=== PATIENT | female | born 1940 | race Caucasian/White ===

== ENCOUNTER 2016-05-19 13:23 | Emergency (ER) | payer MEDICARE ==
[2016-05-19] MEDS ORDERED: ONDANSETRON 4MG/2ML VIAL (J2405) As Ordered ONE (16:37)
[2016-05-19] MEDS ORDERED: KETOROLAC 30 MG/ML VIAL (J1885) As Ordered ONE (16:37)
[2016-05-19 16:55] LABS: BASO % 0.2 % (0.0-1.0); EOS # 0.1 K/mm3 (0.0-0.50); EOS % 1.7 % (0.0-3.0); LARGE UNSTAINED CELL # 0.2 K/mm3 (0.0-0.4); LARGE UNSTAINED CELL % 3.3 % (0.0-4.0); LYMPH # 1.8 K/mm3 (1.5-4.5); LYMPH % 31.4 % (24.0-44.0); MEAN CORPUSCULAR HEMOGLOBIN 31.5 pg (27.0-33.0); MEAN CORPUSCULAR HGB CONC 33.3 g/dl (32.0-36.5); MEAN CORPUSCULAR VOLUME 94.6 fl (80.0-96.0); MONO # 0.4 K/mm3 (0.0-0.8); MONO % 6.1 % (0.0-5.0); NEUTROPHILS # 3.3 K/mm3 (1.8-7.7); NEUTROPHILS % 57.3 % (36.0-66.0); PLATELET COUNT, AUTOMATED 273 k/mm3 (150-450); RED CELL DISTRIBUTION WIDTH 12.8 % (11.5-14.5); WHITE BLOOD COUNT 5.7 K/mm3 (4.0-10.0)
[2016-05-19 17:12] LABS: ALBUMIN 4.2 GM/DL (3.2-5.2); ALBUMIN/GLOBULIN RATIO 1.31 (1.00-1.93); ALKALINE PHOSPHATASE 88 U/L (45-117); ALT/SGPT 18 U/L (12-78); AMYLASE 89 U/L (25-115); ANION GAP 11 MEQ/L (8-16); AST/SGOT 14 U/L (15-37); BILIRUBIN,DIRECT 0.1 MG/DL (0.0-0.2); BILIRUBIN,TOTAL 0.5 MG/DL (0.2-1.0); BLOOD UREA NITROGEN 12 MG/DL (7-18); CALCIUM LEVEL 9.2 MG/DL (8.8-10.2); CARBON DIOXIDE LEVEL 25 MEQ/L (21-32); CHLORIDE LEVEL 107 MEQ/L (98-107); GLOMERULAR FILTRATION RATE > 60.0 (>39); GLUCOSE, FASTING 85 MG/DL (83-110); POTASSIUM SERUM 3.8 MEQ/L (3.5-5.1); SODIUM LEVEL 143 MEQ/L (136-145); TOTAL PROTEIN 7.4 GM/DL (6.4-8.2)
--- NOTE | 2016-05-19 17:13 | REP ---
KUB, two views: History: Right upper quadrant pain. Air is present in small and large intestine. There are no air fluid levels or dilated loops of intestine. There is no pneumoperitoneum. IMPRESSION: Nonspecific bowel gas pattern. Signed by David Rae MD 05/20/2016 08:19 A
[2016-05-19] MEDS ORDERED: METOCLOPRAMIDE INJ 10MG/2ML VIAL (J2765) As Ordered ONE (17:45)
--- NOTE | 2016-05-19 18:17 | REP ---
Right upper quadrant sonography: History: Right upper quadrant pain. Comparison sonography is from April 06, 2009. Comparison CT study is from June 19, 2014. Findings: Scanning through the right upper quadrant of the abdomen demonstrates tenderness while scanning over the gallbladder. Gallbladder is not dilated. Its wall is not thickened. No stone or polyp is appreciated. Common bile duct is normal measuring 0.6 cm in greatest diameter. No focal hepatic lesion is seen. Scanning over the pancreas shows no evidence of mass or cyst. The main pancreatic duct is somewhat dilated, however, measuring 4.7 or 5 mm. This appears to be a change from the comparison CT study from 2014. No pancreatic mass lesion is seen. There is no evidence of ascites. No right renal abnormality is noted. The right kidney measures 10.1 x 3.8 x 4.5 cm. Impression: 1. Tenderness to scanning over the gallbladder. No evidence of stone or polyp. 2. Main pancreatic duct is mildly dilated to 0.5 cm in diameter. No mass or cyst is seen. Consider further pancreatic imaging. Signed by Kevin Cagle MD 05/19/2016 06:38 P
[2016-05-19] MEDS ORDERED: ISOVUE-370 76% 100ML VIAL (Q9967) As Ordered ONE (18:56)
--- NOTE | 2016-05-19 19:49 | REP ---
CT abdomen and pelvis with IV, but without oral contrast: History: Abdominal pain. Pancreatic duct dilation. CT contrast dose: 100 ml of Isovue 370 is administered intravenously. Comparison CT study June 19, 2014. CT findings: Preliminary digital concert pianist radiograph is unremarkable. The lung bases show no significant abnormality. The liver shows mild diffuse fatty infiltration, but is otherwise homogeneous. No focal liver mass lesion is seen. The spleen is normal in size and homogeneous in texture. No adrenal lesion is seen on either side. The gallbladder shows no abnormality. Pancreas shows no evidence of mass or cyst. By CT, main pancreatic duct measures 3 mm in diameter. It is felt to be upper normal. It is not significantly changed by CT scan from June 19, 2014. No retroperitoneal mass or adenopathy is seen. Normal caliber aorta is seen. The kidneys enhance symmetrically and are morphologically intact. There is a subcentimeter cortical cyst posteriorly in the left kidney. Extrarenal pelvis configuration is seen bilaterally. There is left colonic diverticulosis without CT evidence of diverticulitis. Small and large intestinal bowel loops are unremarkable. The patient is status post hysterectomy. No bony destructive lesion is seen. No abdominal wall defect is observed. Impression: 1. Mild diffuse fatty infiltration of the liver. 2. No significant pancreatic abnormality. Borderline pancreatic duct unchanged from the 2015 study. 3. Left colonic diverticulosis without CT evidence of diverticulitis. 4. Status post hysterectomy. Signed by Kevin Cagle MD 05/19/2016 08:00 P
[2016-05-19] MEDS ORDERED: NITROFURANTOIN (MACROBID) 100 MG CAP As Ordered ONE (20:56)
--- NOTE | 2016-05-19 21:20 | EDDOCDS ---
Nurse's Notes [facility] Name: Yael Oh Age: 75 yrs Sex: Female : 1940 Arrival Date: 05/19/2016 Time: 13:23 Bed TR3 Private MD: Brittanie Hdz Diagnosis: Upper abdominal pain, unspecified;Urinary tract infection, site not specified Presentation: 05/19 13:38 Presenting complaint: Patient states: pain in right side for a long time (hurt 20 years hs1 ago) Patient states flare up today and unbearable. Patient states radiates from back into stomach. Patient reports bloating. Adult Sepsis Screening: The patient does not have new or worsening altered mentation. Patient's respiratory rate is less than 22. Systolic blood pressure is greater than 100. Patient has a qSOFA score of 0- Negative Sepsis Screen. Suicide/Homicide risk assessment- the patient denies having any suicidal and/or homicidal ideations and does not present with any other emotional, behavioral or mental health complaints. 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 Transition of care: patient was not received from another setting of care. 13:38 Acuity: DAVE Level 3 hs1 13:38 Method Of Arrival: Walkin/Carried/Asstd hs1 13:45 Presenting complaint: patient tells this nurse at this time she was sent by [place] [id number] [facility] facility who wanted her to go by ambulance around 1130. Patient refused to come by ambulance. Triage Assessment: 13:44 General: Appears uncomfortable, Behavior is appropriate for age, cooperative. Pain: hs1 Location: back and abdomen Pain currently is 9 out of 10 on a pain scale. Neurological: No deficits noted. GI: Abdomen is non- distended Denies nausea, vomiting. Derm: Skin is pink, warm & dry. normal. Historical: - Allergies: QUINIDINE/QUININE & DERIVATIVES; Latex; TETRACYCLINES; Biaxin; Morphinestates very sensitive to it (resp depression noted last time administered); - Home Meds: 1. gabapentin 600 mg Oral tab 1 tab 3 times per day 2. amlodipine-valsartan 5-160 mg oral tab 1 tab once daily 3. Excedrin Migraine 250-250-65 mg Oral tab (Last dose: 05/18/2016) 4. rabeprazole 20 mg oral TbEC 1 tab once daily 5. pentazocine-naloxone 50-0.5 mg oral tab (Last dose: 05/19/2016 11:00) - PMHx: Fibromyalgia; Arthritis; Diverticulosis; Diverticulitis; Osteoporosis; symptahetic dystrophy; - PSHx: Hysterectomy; Tonsillectomy; bladder repair; - Social history: Smoking status: Patient states former smoker of tobacco. No barriers to communication noted, The patient speaks fluent Slovenian, Speaks appropriately for age. - Family history: Not pertinent. - : The pt / caregiver states he / she is not on anticoagulants. Home medication list is obtained from the patient. - Exposure Risk Screening:: None identified. Screenin:46 Screening information is obtained from the patient. Fall risk: No risks identified. hs1 Assistance ADL's: requires no assistance with activities of daily living. Abuse/DV Screen: The patient / caregiver reports he/she is: not in a situation that causes fear, pain or injury. Nutritional screening: No deficits noted. Advance Directives: There is no active DNR order. home support is adequate. Assessment: 16:13 General: Appears uncomfortable, well nourished, well groomed, Behavior is anxious, ttb appropriate for age, cooperative, pleasant. Pain: Location: right upper/mid abd/flank. Neurological: Level of Consciousness is awake, alert. Respiratory: No deficits noted. Airway is patent Respiratory effort is even, unlabored. GI: Abdomen is "bloated" per pt firm Reports bloating, lower abdominal pain, upper abdominal pain. GI: Reports. : Denies burning with urination. Derm: Skin is normal. Injury Description: No known injury. 16:41 Adult Sepsis Screening: The patient does not have new or worsening altered mentation. dsf Patient's respiratory rate is less than 22. Systolic blood pressure is greater than 100. Patient has a qSOFA score of 0- Negative Sepsis Screen. General: Appears uncomfortable, Behavior is cooperative, fussy. Pain: Location: right upper quadrant Pain currently is 8 out of 10 on a pain scale. Pain radiates to epigastric area and right back Quality of pain is described as sharp, Pain began for months. Neurological: Level of Consciousness is awake, alert, Oriented to person, place, time. Cardiovascular: Capillary refill < 3 seconds. Respiratory: Airway is patent Respiratory effort is even, unlabored, Respiratory pattern is regular, symmetrical. Derm: Skin is pink, warm & dry. 17:50 Adult Sepsis Screening: The patient does not have new or worsening altered mentation. dsf Patient's respiratory rate is less than 22. Systolic blood pressure is greater than 100. Patient has a qSOFA score of 0- Negative Sepsis Screen. General: Appears in no apparent distress, Behavior is appropriate for age, cooperative. Neurological: Level of Consciousness is awake, alert. Cardiovascular: Capillary refill < 3 seconds. Respiratory: Airway is patent Respiratory effort is even, unlabored, Respiratory pattern is regular, symmetrical. Derm: Skin is pink, warm & dry. 19:03 General: Appears in no apparent distress, Behavior is appropriate for age, cooperative. dsf Pain: Location: right upper quadrant Pain currently is 3 out of 10 on a pain scale. Neurological: Level of Consciousness is awake, alert. Cardiovascular: Capillary refill < 3 seconds Heart tones S1 S2 present. Respiratory: Airway is patent Respiratory effort is even, unlabored, Respiratory pattern is regular, symmetrical, Breath sounds are clear bilaterally. GI: Abdomen is non- distended Bowel sounds present X 4 quads. Abd is soft and non tender X 4 quads. Denies nausea. Derm: Skin is pink, warm & dry. 20:19 General: Appears in no apparent distress, comfortable, Behavior is appropriate for age, jmb cooperative, Patient laying on stretcher, appears asleep, easy to arouse. NO voiced complaints at this time. . Neurological: Level of Consciousness is awake, alert, obeys commands, Oriented to person, place, time, Repertoire Manager are equal bilaterally Speech is normal, Facial symmetry appears normal, Facial symmetry: tongue is midline. Respiratory: Airway is patent Respiratory effort is even, unlabored, Respiratory pattern is regular, symmetrical. 21:00 General: Patient instructed on discharge instructions. Patient asked if there were any jmb questions regarding discharge, patient stated no. IV discontinued per hospital policy. Patient signed discharge instructions. Patient discharged in stable condition. . Vital Signs: 13:26 BP 175 / 97; Pulse 116; Resp 18 S; Temp 98.5(O); Pulse Ox 96% on R/A; Weight 67.13 kg gr2 (R); Height 5 ft. 6 in. (167.64 cm) (R); Pain 9/10; 19:10 BP 156 / 75; Pulse 74; Resp 18; Temp 97.7; Pulse Ox 95% ; Pain 3/10; ajs 21:04 BP 142 / 75; Pulse 72; Resp 18; Temp 99.2; Pulse Ox 96% ; Pain 3/10; ajs 13:26 Body Mass Index 23.89 (67.13 kg, 167.64 cm) gr2 Vitals: 13:26 Log In Time: May 19, 2016 at 13:26. gr2 ED Course: 13:24 Patient visited by Cristina Fairchild. gr2 13:24 Patient moved to Waiting gr2 13:25 Brittanie Hdz RPA-C is Private Physician. gr2 13:27 Patient visited by Cristina Fairchild. gr2 13:27 Patient moved to Pre RCE gr2 13:40 Triage Initiated hs1 15:34 Patient moved to Triage 2 ct3 16:13 Cosmo Foy PA-C is PHCP. ar2 16:13 Charanjit Taylor MD is Attending Physician. ar2 16:13 Patient visited by Cosmo Foy PA-C. ar2 16:15 Patient visited by Saira Barron, BRANDI. ttb 16:25 Cassie Fallon, BRANDI is Primary Nurse. ttb 16:25 Angela Mooney,BRANDI is Primary Nurse. ttb 16:25 Patient moved to I2 / M2 ttb 16:40 Amylase Sent. dsf 16:40 Basic Metabolic Profile Sent. dsf 16:40 CBC with Diff Sent. dsf 16:40 Lipase Sent. dsf 16:40 Liver Profile Sent. dsf 16:40 Inserted saline lock: 20 gauge in right antecubital area The patient tolerated the dsf procedure well. 16:41 Patient visited by Viridiana Bruno,BRANDI. dsf 17:23 KUB Returned. EDMS 17:25 Patient moved to Ultrasound hgl 18:20 Gallbladder US Returned. EDMS 18:23 PHCP role handed off by Cosmo Foy PA-C ck7 18:23 Phani Solorio RPA-C is PHCP. ck7 18:36 [facility] Payment Agreement was scanned into [employer] and attached to record. gjb 18:39 Patient moved to I2 / M2 hgl 18:41 Patient visited by Phani Solorio RPA-C. ck7 19:04 Patient visited by Viridiana Bruno RN. dsf 19:11 Patient visited by Awilda Yoon. ajs 19:17 Gallbladder US Returned. EDMS 19:51 Patient visited by Phani Solorio RPA-C. ck7 20:16 CT ABD & PELVIS: IV Contrast Only Returned. EDMS 20:20 Patient visited by Ty Coates RN. jmb 20:50 Patient visited by Phani Solorio RPA-C. ck7 20:52 Brittanie Hdz RPA-C is Referral Physician. ck7 21:00 The patient / caregiver is instructed regarding the plan of care and ED course. jmb 21:00 Discontinued lock intact, bleeding controlled, pressure dressing applied, No jmb redness/swelling at site. No procedures done that require assistance. 21:04 Patient visited by Awilda Yoon. ajs 21:11 Patient moved to 3 ajs Administered Medications: 16:46 Drug: Ondansetron 4 mg Route: IVP; Site: right antecubital; ja5 16:46 Drug: ketorolac 30 mg [ketorolac 30 mg/mL (1 mL) injection solution (1 mL)] Route: IVP; ja5 Site: right antecubital; 17:59 Drug: Metoclopramide 10 mg [metoclopramide 5 mg/mL injection solution] Route: IV; Rate: ja5 40 mg/hr; Infused Over: 15 mins; Site: right antecubital; 18:22 Follow up: IV Status: Completed infusion ja5 18:04 Drug: NS 0.9% 1000 ml [sodium chloride 0.9 % intravenous solution] Route: IV; Rate: ja5 bolus; Site: right antecubital; 21:00 Drug: Nitrofurantoin 100 mg [nitrofurantoin macrocrystal 50 mg capsule (2 caps)] Route: jmb PO; Order Results: Lab Order: UA; SPEC'M 05/19/16 16:18 Test: APPEARANCE, URINE; Value: HAZY; Range: CLEAR; Status: F Test: COLOR, URINE; Value: STRAW; Range: YELLOW; Status: F Test: PH,URINE; Value: 6.0; Range: 5.0-9.0; Units: UNITS; Status: F Test: SPECIFIC GRAVITY URINE AUTO; Value: 1.005; Range: 1.002-1.035; Status: F Test: PROTEIN, URINE AUTO; Value: NEGATIVE; Range: NEGATIVE; Units: mg/dL; Status: F Test: GLUCOSE, URINE (UA) AUTO; Value: NEGATIVE; Range: NEGATIVE; Units: mg/dL; Status: F Test: KETONE, URINE AUTO; Value: TRACE; Range: NEGATIVE; Abnormal: Above high normal; Units: mg/dL; Status: F Test: UROBILINOGEN, URINE AUTO; Value: 0.2; Range: 0.0-2.0; Units: mg/dL; Status: F Test: BILIRUBIN, URINE AUTO; Value: NEGATIVE; Range: NEGATIVE; Status: F Test: NITRITE, URINE AUTO; Value: NEGATIVE; Range: NEGATIVE; Status: F Test: LEUKOCYTE ESTERASE, URINE AUTO; Value: 3+; Range: NEGATIVE; Abnormal: Above high normal; Status: F Test: BLOOD, URINE BLOOD; Value: NEGATIVE; Range: NEGATIVE; Status: F Test: WBC, URINE AUTO; Value: 144; Range: 0-3; Abnormal: Above high normal; Units: /HPF; Status: F Test: RBC, URINE AUTO; Value: 11; Range: 0-3; Abnormal: Above high normal; Units: /HPF; Status: F Test: BACTERIA, URINE AUTO; Value: 1+; Range: NEGATIVE; Abnormal: Above high normal; Status: F Test: SQUAMOUS EPITHELIAL CELL UR AU; Value: 1; Range: 0-6; Units: /HPF; Status: F Test: HYALINE CAST, URINE AUTO; Value: 0; Range: 0-1; Units: /LPF; Status: F Test: AMORPHOUS SEDIMENT; Value: SMALL; Range: NEGATIVE; Abnormal: Above high normal; Status: F Lab Order: Amylase; SPEC'M 05/19/16 16:36 Test: AMYLASE; Value: 89; Range: 25-115; Units: U/L; Status: F Lab Order: Basic Metabolic Profile; SPEC'M 05/19/16 16:36 Test: GLUCOSE, FASTING; Value: 85; Range: 83-110; Units: MG/DL; Status: F Test: BLOOD UREA NITROGEN; Value: 12; Range: 7-18; Units: MG/DL; Status: F Test: CREATININE FOR GFR; Value: 0.80; Range: 0.55-1.02; Units: MG/DL; Status: F Test: GLOMERULAR FILTRATION RATE; Value: > 60.0; Range: >39; Status: F Test: SODIUM LEVEL; Value: 143; Range: 136-145; Units: MEQ/L; Status: F Test: POTASSIUM SERUM; Value: 3.8; Range: 3.5-5.1; Units: MEQ/L; Status: F Test: CHLORIDE LEVEL; Value: 107; Range: 98-107; Units: MEQ/L; Status: F Test: CARBON DIOXIDE LEVEL; Value: 25; Range: 21-32; Units: MEQ/L; Status: F Test: ANION GAP; Value: 11; Range: 8-16; Units: MEQ/L; Status: F Test: CALCIUM LEVEL; Value: 9.2; Range: 8.8-10.2; Units: MG/DL; Status: F Test Note: ; Units are mL/min/1.73 m2 Chronic Kidney Disease Staging per NKF: Stage I & II GFR >=60 Normal to Mildly Decreased Stage III GFR 30-59 Moderately Decreased Stage IV GFR 15-29 Severely Decreased Stage V GFR <15 Very Little GFR Left ESRD GFR <15 on SNAKER [employer]IVING HORSES Lab Order: CBC with Diff; SPEC'M 05/19/16 16:36 Test: WHITE BLOOD COUNT; Value: 5.7; Range: 4.0-10.0; Units: K/mm3; Status: F Test: RED BLOOD COUNT; Value: 4.27; Range: 4.00-5.40; Units: M/mm3; Status: F Test: HEMOGLOBIN; Value: 13.5; Range: 12.0-16.0; Units: g/dl; Status: F Test: HEMATOCRIT; Value: 40.4; Range: 36.0-47.0; Units: %; Status: F Test: MEAN CORPUSCULAR VOLUME; Value: 94.6; Range: 80.0-96.0; Units: fl; Status: F Test: MEAN CORPUSCULAR HEMOGLOBIN; Value: 31.5; Range: 27.0-33.0; Units: pg; Status: F Test: MEAN CORPUSCULAR HGB CONC; Value: 33.3; Range: 32.0-36.5; Units: g/dl; Status: F Test: RED CELL DISTRIBUTION WIDTH; Value: 12.8; Range: 11.5-14.5; Units: %; Status: F Test: PLATELET COUNT, AUTOMATED; Value: 273; Range: 150-450; Units: k/mm3; Status: F Test: NEUTROPHILS %; Value: 57.3; Range: 36.0-66.0; Units: %; Status: F Test: LYMPH %; Value: 31.4; Range: 24.0-44.0; Units: %; Status: F Test: MONO %; Value: 6.1; Range: 0.0-5.0; Abnormal: Above high normal; Units: %; Status: F Test: EOS %; Value: 1.7; Range: 0.0-3.0; Units: %; Status: F Test: BASO %; Value: 0.2; Range: 0.0-1.0; Units: %; Status: F Test: LARGE UNSTAINED CELL %; Value: 3.3; Range: 0.0-4.0; Units: %; Status: F Test: NEUTROPHILS #; Value: 3.3; Range: 1.8-7.7; Units: K/mm3; Status: F Test: LYMPH #; Value: 1.8; Range: 1.5-4.5; Units: K/mm3; Status: F Test: MONO #; Value: 0.4; Range: 0.0-0.8; Units: K/mm3; Status: F Test: EOS #; Value: 0.1; Range: 0.0-0.50; Units: K/mm3; Status: F Test: BASO #; Value: 0.0; Range: 0.0-0.2; Units: K/mm3; Status: F Test: LARGE UNSTAINED CELL #; Value: 0.2; Range: 0.0-0.4; Units: K/mm3; Status: F Lab Order: Lipase; SPEC' 05/19/16 16:36 Test: LIPASE; Value: 108; Range: 73-393; Units: U/L; Status: F Lab Order: Liver Profile; SPEC' 05/19/16 16:36 Test: AST/SGOT; Value: 14; Range: 15-37; Abnormal: Below low normal; Units: U/L; Status: F Test: ALT/SGPT; Value: 18; Range: 12-78; Units: U/L; Status: F Test: ALKALINE PHOSPHATASE; Value: 88; Range: 45-117; Units: U/L; Status: F Test: BILIRUBIN,TOTAL; Value: 0.5; Range: 0.2-1.0; Units: MG/DL; Status: F Test: BILIRUBIN,DIRECT; Value: 0.1; Range: 0.0-0.2; Units: MG/DL; Status: F Test: TOTAL PROTEIN; Value: 7.4; Range: 6.4-8.2; Units: GM/DL; Status: F Test: ALBUMIN; Value: 4.2; Range: 3.2-5.2; Units: GM/DL; Status: F Test: ALBUMIN/GLOBULIN RATIO; Value: 1.31; Range: 1.00-1.93; Status: F Radiology Order: Gallbladder US Test: Gallbladder US REASON FOR EXAMINATION: Biliary Colic; Right upper quadrant sonography:; ; History: Right upper quadrant pain.; ; Comparison sonography is from April 06, 2009. Comparison CT study is from; June 19, 2014.; ; Findings: Scanning through the right upper quadrant of the abdomen demonstrates; tenderness while scanning over the gallbladder. Gallbladder is not dilated. Its; wall is not thickened. No stone or polyp is appreciated. Common bile duct is; normal measuring 0.6 cm in greatest diameter. No focal hepatic lesion is seen.; ; Scanning over the pancreas shows no evidence of mass or cyst. The main; pancreatic duct is somewhat dilated, however, measuring 4.7 or 5 mm. This; appears to be a change from the comparison CT study from 2014. No pancreatic; mass lesion is seen. There is no evidence of ascites. No right renal; abnormality is noted. The right kidney measures 10.1 x 3.8 x 4.5 cm.; ; Impression:; ; 1. Tenderness to scanning over the gallbladder. No evidence of stone or polyp.; ; 2. Main pancreatic duct is mildly dilated to 0.5 cm in diameter. No mass or; cyst is seen. Consider further pancreatic imaging.; ; ; Signed by; Kevin Cagle MD 05/19/2016 06:38 P; Radiology Order: KUB Test: KUB REASON FOR EXAMINATION: ruq pain; KUB, two views:; ; History: Right upper quadrant pain.; ; Air is present in small and large intestine. There are no air fluid levels or; dilated loops of intestine. There is no pneumoperitoneum.; ; IMPRESSION:; Nonspecific bowel gas pattern.; ; ; ; Unreviewed; Radiology Order: CT ABD & PELVIS: IV Contrast Only Test: CT ABD & PELVIS: IV Contrast Only REASON FOR EXAMINATION: abd pain, pancreatic duct dilation, r/o mass; CT abdomen and pelvis with IV, but without oral contrast:; ; History: Abdominal pain. Pancreatic duct dilation.; ; CT contrast dose: 100 ml of Isovue 370 is administered intravenously.; ; Comparison CT study June 19, 2014.; ; CT findings: Preliminary digital junk dealer radiograph is unremarkable. The lung; bases show no significant abnormality.; ; The liver shows mild diffuse fatty infiltration, but is otherwise homogeneous.; No focal liver mass lesion is seen. The spleen is normal in size and homogeneous; in texture. No adrenal lesion is seen on either side. The gallbladder shows no; abnormality. Pancreas shows no evidence of mass or cyst. By CT, main pancreatic; duct measures 3 mm in diameter. It is felt to be upper normal. It is not; significantly changed by CT scan from June 19, 2014. No retroperitoneal mass or; adenopathy is seen. Normal caliber aorta is seen. The kidneys enhance; symmetrically and are morphologically intact. There is a subcentimeter cortical; cyst posteriorly in the left kidney. Extrarenal pelvis configuration is seen; bilaterally. There is left colonic diverticulosis without CT evidence of; diverticulitis. Small and large intestinal bowel loops are unremarkable. The; patient is status post hysterectomy. No bony destructive lesion is seen. No; abdominal wall defect is observed.; ; Impression:; ; 1. Mild diffuse fatty infiltration of the liver.; ; 2. No significant pancreatic abnormality. Borderline pancreatic duct unchanged; from the 2014 study.; ; 3. Left colonic diverticulosis without CT evidence of diverticulitis.; ; 4. Status post hysterectomy.; ; ; Signed by; Kevin Cagle MD 05/19/2016 08:00 P; Outcome: 20:53 Discharge ordered by Provider. ck7 21:00 Discharge Assessment: Patient awake, alert and oriented x 3. No cognitive and/or jmb functional deficits noted. Patient verbalized understanding of disposition instructions. Patient awake and alert. obeys commands, Oriented to person, place and time. Patient verbalized understanding of disposition instructions. Patient has no functional deficits. patient administered narcotics - no. The following High Risk Discharge criteria are identified: None. Discharged to home ambulatory. Condition: stable Condition: improved. Discharge instructions given to patient, Instructed on discharge instructions, follow up and referral plans. medication usage, Demonstrated understanding of instructions, medications, Pt was receptive of discharge instructions/ teaching. Prescriptions given X 2. CT Study completed. Property sent home with patient. 21:19 Patient left the ED. b Signatures: Dispatcher [employer] EDMS Cosmo Foy PA-C PAEdi ar2 Chasity Ferro, RN RN hs1 Emily Hollis, FIELD MARKETING LEAD FIELD MARKETING LEAD ct3 Viridiana Bruno,RN RN dsf Awilda Yoon Ly, Bright hgl Phani Solorio, RPA-C RPA-Cck7 Saira Barron, RN RN Cristina Wiggins2 yT Coates,RN RN Chantelle Brady Jessica,RN RN ja5 ANA
--- NOTE | 2016-05-19 21:20 | EDDOCDS ---
Physician Documentation [facility] Name: Yael Oh Age: 75 yrs Sex: Female : 1940 Arrival Date: 05/19/2016 Time: 13:23 Bed TR3 Private MD: Brittanie Hdz Disposition: 05/19/16 20:53 Discharged to Home/Self Care. Impression: Upper abdominal pain, unspecified, Urinary tract infection, site not specified. - Condition is Stable. - Discharge Instructions: Urinary Tract Infection, Abdominal Pain, Adult, [id number]. - Prescriptions for Macrobid 100 mg Oral Capsule - take 100 milligram by ORAL route every 12 hours for 10 days; 20 capsule. - Medication Reconciliation, Local Pharmacy Hours form. - Follow up: Brittanie Hdz RPA-C; When: 1 - 2 days; Reason: Recheck today's complaints, Continuance of care. - Problem is new. - Symptoms have improved. Historical: - Allergies: QUINIDINE/QUININE & DERIVATIVES; Latex; TETRACYCLINES; Biaxin; Morphinestates very sensitive to it (resp depression noted last time administered); - Home Meds: 1. gabapentin 600 mg Oral tab 1 tab 3 times per day 2. amlodipine-valsartan 5-160 mg oral tab 1 tab once daily 3. Excedrin Migraine 250-250-65 mg Oral tab (Last dose: 05/18/2016) 4. rabeprazole 20 mg oral TbEC 1 tab once daily 5. pentazocine-naloxone 50-0.5 mg oral tab (Last dose: 05/19/2016 11:00) - PMHx: Fibromyalgia; Arthritis; Diverticulosis; Diverticulitis; Osteoporosis; symptahetic dystrophy; - PSHx: Hysterectomy; Tonsillectomy; bladder repair; - Social history: Smoking status: Patient states former smoker of tobacco. No barriers to communication noted, The patient speaks fluent Tunisian, Speaks appropriately for age. - Family history: Not pertinent. - : The pt / caregiver states he / she is not on anticoagulants. Home medication list is obtained from the patient. - Exposure Risk Screening:: None identified. Vital Signs: 05/19 13:26 BP 175 / 97; Pulse 116; Resp 18 S; Temp 98.5(O); Pulse Ox 96% on R/A; Weight 67.13 kg / gr2 148 lbs (R); Height 5 ft. 6 in. (167.64 cm) (R); Pain 9/10; 19:10 BP 156 / 75; Pulse 74; Resp 18; Temp 97.7; Pulse Ox 95% ; Pain 3/10; ajs 21:04 BP 142 / 75; Pulse 72; Resp 18; Temp 99.2; Pulse Ox 96% ; Pain 3/10; ajs 13:26 Body Mass Index 23.89 (67.13 kg, 167.64 cm) gr2 MDM: 16:16 UA Ordered. EDMS 16:26 IV Saline Lock ordered. ar2 16:26 Undress patient appropriately for examination ordered. ar2 16:26 Ondansetron 4 mg IVP once ordered. ar2 16:26 ketorolac 30 mg IVP once ordered. ar2 16:28 NOTHING BY MOUTH+DIET ordered. EDMS 16:28 Amylase Ordered. EDMS 16:28 Basic Metabolic Profile Ordered. EDMS 16:28 CBC with Diff Ordered. EDMS 16:28 Lipase Ordered. EDMS 16:28 Liver Profile Ordered. EDMS 16:29 Gallbladder US Ordered. EDMS 16:29 KUB Ordered. EDMS 17:43 Metoclopramide 10 mg IV at 40 mg/hr once over 15 mins ordered. ar2 17:55 UA Reviewed. ar2 17:55 CBC with Diff Reviewed. ar2 17:55 Liver Profile Reviewed. ar2 17:55 Amylase Reviewed. ar2 17:55 Basic Metabolic Profile Reviewed. ar2 17:55 Lipase Reviewed. ar2 17:55 KUB Reviewed. ar2 17:56 NS 0.9% 1000 ml IV at bolus once ordered. ar2 18:26 Financial registration complete. gjb 18:36 [facility] Payment Agreement was scanned into [employer] and attached to record. gjb 18:41 Gallbladder US Reviewed. ck7 18:44 CT ABD & PELVIS: IV Contrast Only Ordered. EDMS 18:53 Recheck Vital Signs, perform reassessment and enter into [employer] ordered. ck7 20:20 Gallbladder US Reviewed. ck7 20:20 CT ABD & PELVIS: IV Contrast Only Reviewed. ck7 20:53 Nitrofurantoin 100 mg PO once ordered. ck7 Administered Medications: 16:46 Drug: Ondansetron 4 mg Route: IVP; Site: right antecubital; ja5 16:46 Drug: ketorolac 30 mg [ketorolac 30 mg/mL (1 mL) injection solution (1 mL)] Route: IVP; ja5 Site: right antecubital; 17:59 Drug: Metoclopramide 10 mg [metoclopramide 5 mg/mL injection solution] Route: IV; Rate: ja5 40 mg/hr; Infused Over: 15 mins; Site: right antecubital; 18:22 Follow up: IV Status: Completed infusion 5 18:04 Drug: NS 0.9% 1000 ml [sodium chloride 0.9 % intravenous solution] Route: IV; Rate: ja5 bolus; Site: right antecubital; 21:00 Drug: Nitrofurantoin 100 mg [nitrofurantoin macrocrystal 50 mg capsule (2 caps)] Route: jmb PO; Signatures: Dispatcher [employer] Cosmo Guerrero PA-C PARoseC ar2 Chasity Ferro RN RN hs1 Phani Solorio RPA-C RPA-[facility]7 Ty Coates RN RN jmb Beck, Gabriela gjb Anderson, Jessica RN ja5 The chart was reviewed and I authenticate all verbal orders and agree with the evaluation and treatment provided.Attachments: 18:36 [facility] Payment Agreement reginald MTDD
--- NOTE | 2016-05-21 22:21 | EDDOCDS ---
Physician Documentation [facility] Name: Yael Oh Age: 75 yrs Sex: Female : 1940 Arrival Date: 05/19/2016 Time: 13:23 Bed TR3 Private MD: Brittanie Hdz Disposition: 05/19/16 20:53 Discharged to Home/Self Care. Impression: Upper abdominal pain, unspecified, Urinary tract infection, site not specified. - Condition is Stable. - Discharge Instructions: Urinary Tract Infection, Abdominal Pain, Adult, [id number]. - Prescriptions for Macrobid 100 mg Oral Capsule - take 100 milligram by ORAL route every 12 hours for 10 days; 20 capsule. - Medication Reconciliation, Local Pharmacy Hours form. - Follow up: Brittanie Hdz RPA-C; When: 1 - 2 days; Reason: Recheck today's complaints, Continuance of care. - Problem is new. - Symptoms have improved. Historical: - Allergies: QUINIDINE/QUININE & DERIVATIVES; Latex; TETRACYCLINES; Biaxin; Morphinestates very sensitive to it (resp depression noted last time administered); - Home Meds: 1. gabapentin 600 mg Oral tab 1 tab 3 times per day 2. amlodipine-valsartan 5-160 mg oral tab 1 tab once daily 3. Excedrin Migraine 250-250-65 mg Oral tab (Last dose: 05/18/2016) 4. rabeprazole 20 mg oral TbEC 1 tab once daily 5. pentazocine-naloxone 50-0.5 mg oral tab (Last dose: 05/19/2016 11:00) - PMHx: Fibromyalgia; Arthritis; Diverticulosis; Diverticulitis; Osteoporosis; symptahetic dystrophy; - PSHx: Hysterectomy; Tonsillectomy; bladder repair; - Social history: Smoking status: Patient states former smoker of tobacco. No barriers to communication noted, The patient speaks fluent Israeli, Speaks appropriately for age. - Family history: Not pertinent. - : The pt / caregiver states he / she is not on anticoagulants. Home medication list is obtained from the patient. - Exposure Risk Screening:: None identified. Vital Signs: 05/19 13:26 BP 175 / 97; Pulse 116; Resp 18 S; Temp 98.5(O); Pulse Ox 96% on R/A; Weight 67.13 kg / gr2 148 lbs (R); Height 5 ft. 6 in. (167.64 cm) (R); Pain 9/10; 19:10 BP 156 / 75; Pulse 74; Resp 18; Temp 97.7; Pulse Ox 95% ; Pain 3/10; ajs 21:04 BP 142 / 75; Pulse 72; Resp 18; Temp 99.2; Pulse Ox 96% ; Pain 3/10; ajs 13:26 Body Mass Index 23.89 (67.13 kg, 167.64 cm) gr2 MDM: 16:16 UA Ordered. EDMS 16:26 IV Saline Lock ordered. ar2 16:26 Undress patient appropriately for examination ordered. ar2 16:26 Ondansetron 4 mg IVP once ordered. ar2 16:26 ketorolac 30 mg IVP once ordered. ar2 16:28 NOTHING BY MOUTH+DIET ordered. EDMS 16:28 Amylase Ordered. EDMS 16:28 Basic Metabolic Profile Ordered. EDMS 16:28 CBC with Diff Ordered. EDMS 16:28 Lipase Ordered. EDMS 16:28 Liver Profile Ordered. EDMS 16:29 Gallbladder US Ordered. EDMS 16:29 KUB Ordered. EDMS 17:43 Metoclopramide 10 mg IV at 40 mg/hr once over 15 mins ordered. ar2 17:55 UA Reviewed. ar2 17:55 CBC with Diff Reviewed. ar2 17:55 Liver Profile Reviewed. ar2 17:55 Amylase Reviewed. ar2 17:55 Basic Metabolic Profile Reviewed. ar2 17:55 Lipase Reviewed. ar2 17:55 KUB Reviewed. ar2 17:56 NS 0.9% 1000 ml IV at bolus once ordered. ar2 18:26 Financial registration complete. gjb 18:36 [facility] Payment Agreement was scanned into [employer] and attached to record. gjb 18:41 Gallbladder US Reviewed. ck7 18:44 CT ABD & PELVIS: IV Contrast Only Ordered. EDMS 18:53 Recheck Vital Signs, perform reassessment and enter into [employer] ordered. ck7 20:20 Gallbladder US Reviewed. ck7 20:20 CT ABD & PELVIS: IV Contrast Only Reviewed. ck7 20:53 Nitrofurantoin 100 mg PO once ordered. ck7 05/20 10:28 T-Sheet-- Draft Copy was scanned into [employer] and attached to record. gb Administered Medications: 05/19 16:46 Drug: Ondansetron 4 mg Route: IVP; Site: right antecubital; ja5 16:46 Drug: ketorolac 30 mg [ketorolac 30 mg/mL (1 mL) injection solution (1 mL)] Route: IVP; ja5 Site: right antecubital; 17:59 Drug: Metoclopramide 10 mg [metoclopramide 5 mg/mL injection solution] Route: IV; Rate: ja5 40 mg/hr; Infused Over: 15 mins; Site: right antecubital; 18:22 Follow up: IV Status: Completed infusion 5 18:04 Drug: NS 0.9% 1000 ml [sodium chloride 0.9 % intravenous solution] Route: IV; Rate: ja5 bolus; Site: right antecubital; 21:00 Drug: Nitrofurantoin 100 mg [nitrofurantoin macrocrystal 50 mg capsule (2 caps)] Route: karly PO; Signatures: Dispatcher [employer] EDMN Lindsey Reagan, Reg Reg Cosmo Diamond PA-C PAEdi ar2 Chasity Ferro RN RN hs1 Phani Solorio RPA-C RPA-Cck7 Ty Coates RN RN Chantelle Brady Jessica RN ja5 The chart was reviewed and I authenticate all verbal orders and agree with the evaluation and treatment provided.Attachments: 18:36 [facility] Payment Agreement gjb 05/20 10:28 T-Sheet-- Draft Copy gb Chart Complete MTDD
--- NOTE | 2016-05-21 22:21 | EDDOCDS ---
Physician Documentation [facility] Name: Yael Oh Age: 75 yrs Sex: Female : 1940 Arrival Date: 05/19/2016 Time: 13:23 Bed TR3 Private MD: Brittanie Hdz Disposition: 05/19/16 20:53 Discharged to Home/Self Care. Impression: Upper abdominal pain, unspecified, Urinary tract infection, site not specified. - Condition is Stable. - Discharge Instructions: Urinary Tract Infection, Abdominal Pain, Adult, Hxki-hg-Blpb. - Prescriptions for Macrobid 100 mg Oral Capsule - take 100 milligram by ORAL route every 12 hours for 10 days; 20 capsule. - Medication Reconciliation, Local Pharmacy Hours form. - Follow up: Brittanie Hdz RPA-C; When: 1 - 2 days; Reason: Recheck today's complaints, Continuance of care. - Problem is new. - Symptoms have improved. Historical: - Allergies: QUINIDINE/QUININE & DERIVATIVES; Latex; TETRACYCLINES; Biaxin; Morphinestates very sensitive to it (resp depression noted last time administered); - Home Meds: 1. gabapentin 600 mg Oral tab 1 tab 3 times per day 2. amlodipine-valsartan 5-160 mg oral tab 1 tab once daily 3. Excedrin Migraine 250-250-65 mg Oral tab (Last dose: 05/18/2016) 4. rabeprazole 20 mg oral TbEC 1 tab once daily 5. pentazocine-naloxone 50-0.5 mg oral tab (Last dose: 05/19/2016 11:00) - PMHx: Fibromyalgia; Arthritis; Diverticulosis; Diverticulitis; Osteoporosis; symptahetic dystrophy; - PSHx: Hysterectomy; Tonsillectomy; bladder repair; - Social history: Smoking status: Patient states former smoker of tobacco. No barriers to communication noted, The patient speaks fluent Rwandan, Speaks appropriately for age. - Family history: Not pertinent. - : The pt / caregiver states he / she is not on anticoagulants. Home medication list is obtained from the patient. - Exposure Risk Screening:: None identified. Vital Signs: 05/19 13:26 BP 175 / 97; Pulse 116; Resp 18 S; Temp 98.5(O); Pulse Ox 96% on R/A; Weight 67.13 kg / gr2 148 lbs (R); Height 5 ft. 6 in. (167.64 cm) (R); Pain 9/10; 19:10 BP 156 / 75; Pulse 74; Resp 18; Temp 97.7; Pulse Ox 95% ; Pain 3/10; ajs 21:04 BP 142 / 75; Pulse 72; Resp 18; Temp 99.2; Pulse Ox 96% ; Pain 3/10; ajs 13:26 Body Mass Index 23.89 (67.13 kg, 167.64 cm) gr2 MDM: 16:16 UA Ordered. EDMS 16:26 IV Saline Lock ordered. ar2 16:26 Undress patient appropriately for examination ordered. ar2 16:26 Ondansetron 4 mg IVP once ordered. ar2 16:26 ketorolac 30 mg IVP once ordered. ar2 16:28 NOTHING BY MOUTH+DIET ordered. EDMS 16:28 Amylase Ordered. EDMS 16:28 Basic Metabolic Profile Ordered. EDMS 16:28 CBC with Diff Ordered. EDMS 16:28 Lipase Ordered. EDMS 16:28 Liver Profile Ordered. EDMS 16:29 Gallbladder US Ordered. EDMS 16:29 KUB Ordered. EDMS 17:43 Metoclopramide 10 mg IV at 40 mg/hr once over 15 mins ordered. ar2 17:55 UA Reviewed. ar2 17:55 CBC with Diff Reviewed. ar2 17:55 Liver Profile Reviewed. ar2 17:55 Amylase Reviewed. ar2 17:55 Basic Metabolic Profile Reviewed. ar2 17:55 Lipase Reviewed. ar2 17:55 KUB Reviewed. ar2 17:56 NS 0.9% 1000 ml IV at bolus once ordered. ar2 18:26 Financial registration complete. gjb 18:36 [facility] Payment Agreement was scanned into [employer] and attached to record. gjb 18:41 Gallbladder US Reviewed. ck7 18:44 CT ABD & PELVIS: IV Contrast Only Ordered. EDMS 18:53 Recheck Vital Signs, perform reassessment and enter into [employer] ordered. ck7 20:20 Gallbladder US Reviewed. ck7 20:20 CT ABD & PELVIS: IV Contrast Only Reviewed. ck7 20:53 Nitrofurantoin 100 mg PO once ordered. ck7 05/20 10:28 T-Sheet-- Draft Copy was scanned into [employer] and attached to record. gb Administered Medications: 05/19 16:46 Drug: Ondansetron 4 mg Route: IVP; Site: right antecubital; ja5 16:46 Drug: ketorolac 30 mg [ketorolac 30 mg/mL (1 mL) injection solution (1 mL)] Route: IVP; ja5 Site: right antecubital; 17:59 Drug: Metoclopramide 10 mg [metoclopramide 5 mg/mL injection solution] Route: IV; Rate: ja5 40 mg/hr; Infused Over: 15 mins; Site: right antecubital; 18:22 Follow up: IV Status: Completed infusion 5 18:04 Drug: NS 0.9% 1000 ml [sodium chloride 0.9 % intravenous solution] Route: IV; Rate: ja5 bolus; Site: right antecubital; 21:00 Drug: Nitrofurantoin 100 mg [nitrofurantoin macrocrystal 50 mg capsule (2 caps)] Route: karly PO; Signatures: Dispatcher [employer] EDPR Lindsey Reagan, Reg Reg Cosmo Diamond PA-C PAEdi ar2 Chasity Ferro RN RN hs1 Phani Solorio RPA-C RPA-Cck7 Ty Coates RN RN Chantelle Brady Jessica RN ja5 The chart was reviewed and I authenticate all verbal orders and agree with the evaluation and treatment provided.Attachments: 18:36 [facility] Payment Agreement gjb 05/20 10:28 T-Sheet-- Draft Copy gb Chart Complete MTDD
--- NOTE | 2016-05-22 06:42 | EDDOCDS ---
Physician Documentation [facility] Name: Yael Oh Age: 75 yrs Sex: Female : 1940 Arrival Date: 05/19/2016 Time: 13:23 Bed TR3 Private MD: Brittanie Hdz Disposition: 05/19/16 20:53 Discharged to Home/Self Care. Impression: Upper abdominal pain, unspecified, Urinary tract infection, site not specified. - Condition is Stable. - Discharge Instructions: Urinary Tract Infection, Abdominal Pain, Adult, [id number]. - Prescriptions for Macrobid 100 mg Oral Capsule - take 100 milligram by ORAL route every 12 hours for 10 days; 20 capsule. - Medication Reconciliation, Local Pharmacy Hours form. - Follow up: Brittanie Hdz RPA-C; When: 1 - 2 days; Reason: Recheck today's complaints, Continuance of care. - Problem is new. - Symptoms have improved. Historical: - Allergies: QUINIDINE/QUININE & DERIVATIVES; Latex; TETRACYCLINES; Biaxin; Morphinestates very sensitive to it (resp depression noted last time administered); - Home Meds: 1. gabapentin 600 mg Oral tab 1 tab 3 times per day 2. amlodipine-valsartan 5-160 mg oral tab 1 tab once daily 3. Excedrin Migraine 250-250-65 mg Oral tab (Last dose: 05/18/2016) 4. rabeprazole 20 mg oral TbEC 1 tab once daily 5. pentazocine-naloxone 50-0.5 mg oral tab (Last dose: 05/19/2016 11:00) - PMHx: Fibromyalgia; Arthritis; Diverticulosis; Diverticulitis; Osteoporosis; symptahetic dystrophy; - PSHx: Hysterectomy; Tonsillectomy; bladder repair; - Social history: Smoking status: Patient states former smoker of tobacco. No barriers to communication noted, The patient speaks fluent Burmese, Speaks appropriately for age. - Family history: Not pertinent. - : The pt / caregiver states he / she is not on anticoagulants. Home medication list is obtained from the patient. - Exposure Risk Screening:: None identified. Vital Signs: 05/19 13:26 BP 175 / 97; Pulse 116; Resp 18 S; Temp 98.5(O); Pulse Ox 96% on R/A; Weight 67.13 kg / gr2 148 lbs (R); Height 5 ft. 6 in. (167.64 cm) (R); Pain 9/10; 19:10 BP 156 / 75; Pulse 74; Resp 18; Temp 97.7; Pulse Ox 95% ; Pain 3/10; ajs 21:04 BP 142 / 75; Pulse 72; Resp 18; Temp 99.2; Pulse Ox 96% ; Pain 3/10; ajs 13:26 Body Mass Index 23.89 (67.13 kg, 167.64 cm) gr2 MDM: 16:16 UA Ordered. EDMS 16:26 IV Saline Lock ordered. ar2 16:26 Undress patient appropriately for examination ordered. ar2 16:26 Ondansetron 4 mg IVP once ordered. ar2 16:26 ketorolac 30 mg IVP once ordered. ar2 16:28 NOTHING BY MOUTH+DIET ordered. EDMS 16:28 Amylase Ordered. EDMS 16:28 Basic Metabolic Profile Ordered. EDMS 16:28 CBC with Diff Ordered. EDMS 16:28 Lipase Ordered. EDMS 16:28 Liver Profile Ordered. EDMS 16:29 Gallbladder US Ordered. EDMS 16:29 KUB Ordered. EDMS 17:43 Metoclopramide 10 mg IV at 40 mg/hr once over 15 mins ordered. ar2 17:55 UA Reviewed. ar2 17:55 CBC with Diff Reviewed. ar2 17:55 Liver Profile Reviewed. ar2 17:55 Amylase Reviewed. ar2 17:55 Basic Metabolic Profile Reviewed. ar2 17:55 Lipase Reviewed. ar2 17:55 KUB Reviewed. ar2 17:56 NS 0.9% 1000 ml IV at bolus once ordered. ar2 18:26 Financial registration complete. gjb 18:36 [facility] Payment Agreement was scanned into [employer] and attached to record. gjb 18:41 Gallbladder US Reviewed. ck7 18:44 CT ABD & PELVIS: IV Contrast Only Ordered. EDMS 18:53 Recheck Vital Signs, perform reassessment and enter into [employer] ordered. ck7 20:20 Gallbladder US Reviewed. ck7 20:20 CT ABD & PELVIS: IV Contrast Only Reviewed. ck7 20:53 Nitrofurantoin 100 mg PO once ordered. ck7 05/20 10:28 T-Sheet-- Draft Copy was scanned into [employer] and attached to record. gb Administered Medications: 05/19 16:46 Drug: Ondansetron 4 mg Route: IVP; Site: right antecubital; ja5 16:46 Drug: ketorolac 30 mg [ketorolac 30 mg/mL (1 mL) injection solution (1 mL)] Route: IVP; ja5 Site: right antecubital; 17:59 Drug: Metoclopramide 10 mg [metoclopramide 5 mg/mL injection solution] Route: IV; Rate: ja5 40 mg/hr; Infused Over: 15 mins; Site: right antecubital; 18:22 Follow up: IV Status: Completed infusion 18:04 Drug: NS 0.9% 1000 ml [sodium chloride 0.9 % intravenous solution] Route: IV; Rate: ja5 bolus; Site: right antecubital; 21:00 Drug: Nitrofurantoin 100 mg [nitrofurantoin macrocrystal 50 mg capsule (2 caps)] Route: jmbasia PO; Addendum: 05/22/2016 06:41 Radiology Callback: Radiology results faxed to primary care physician/provider. brittanie philip faxed formal report of us for fu mlg. Signatures: Dispatcher [employer] EDMS Minh Longoria MD MD ml Barnhardt, Gloria, Cosmo Valle, PA-C PA-C ar2 Chasity Ferro RN RN hs1 Phani Solorio, RPA-C RPA-[facility]7 Ty Coates RN RN jmb Beck, Gabriela gjb Anderson, Jessica RN ja5 The chart was reviewed and I authenticate all verbal orders and agree with the evaluation and treatment provided.Attachments: 05/19 18:36 [facility] Payment Agreement gjb 05/20 10:28 T-Sheet-- Draft Copy gb MTDD
--- NOTE | 2016-05-22 06:42 | EDDOCDS ---
Physician Documentation [facility] Name: Yael Oh Age: 75 yrs Sex: Female : 1940 Arrival Date: 05/19/2016 Time: 13:23 Bed TR3 Private MD: Brittanie Hdz Disposition: 05/19/16 20:53 Discharged to Home/Self Care. Impression: Upper abdominal pain, unspecified, Urinary tract infection, site not specified. - Condition is Stable. - Discharge Instructions: Urinary Tract Infection, Abdominal Pain, Adult, Grke-nk-Zrus. - Prescriptions for Macrobid 100 mg Oral Capsule - take 100 milligram by ORAL route every 12 hours for 10 days; 20 capsule. - Medication Reconciliation, Local Pharmacy Hours form. - Follow up: Brittanie Hdz RPA-C; When: 1 - 2 days; Reason: Recheck today's complaints, Continuance of care. - Problem is new. - Symptoms have improved. Historical: - Allergies: QUINIDINE/QUININE & DERIVATIVES; Latex; TETRACYCLINES; Biaxin; Morphinestates very sensitive to it (resp depression noted last time administered); - Home Meds: 1. gabapentin 600 mg Oral tab 1 tab 3 times per day 2. amlodipine-valsartan 5-160 mg oral tab 1 tab once daily 3. Excedrin Migraine 250-250-65 mg Oral tab (Last dose: 05/18/2016) 4. rabeprazole 20 mg oral TbEC 1 tab once daily 5. pentazocine-naloxone 50-0.5 mg oral tab (Last dose: 05/19/2016 11:00) - PMHx: Fibromyalgia; Arthritis; Diverticulosis; Diverticulitis; Osteoporosis; symptahetic dystrophy; - PSHx: Hysterectomy; Tonsillectomy; bladder repair; - Social history: Smoking status: Patient states former smoker of tobacco. No barriers to communication noted, The patient speaks fluent Latvian, Speaks appropriately for age. - Family history: Not pertinent. - : The pt / caregiver states he / she is not on anticoagulants. Home medication list is obtained from the patient. - Exposure Risk Screening:: None identified. Vital Signs: 05/19 13:26 BP 175 / 97; Pulse 116; Resp 18 S; Temp 98.5(O); Pulse Ox 96% on R/A; Weight 67.13 kg / gr2 148 lbs (R); Height 5 ft. 6 in. (167.64 cm) (R); Pain 9/10; 19:10 BP 156 / 75; Pulse 74; Resp 18; Temp 97.7; Pulse Ox 95% ; Pain 3/10; ajs 21:04 BP 142 / 75; Pulse 72; Resp 18; Temp 99.2; Pulse Ox 96% ; Pain 3/10; ajs 13:26 Body Mass Index 23.89 (67.13 kg, 167.64 cm) gr2 MDM: 16:16 UA Ordered. EDMS 16:26 IV Saline Lock ordered. ar2 16:26 Undress patient appropriately for examination ordered. ar2 16:26 Ondansetron 4 mg IVP once ordered. ar2 16:26 ketorolac 30 mg IVP once ordered. ar2 16:28 NOTHING BY MOUTH+DIET ordered. EDMS 16:28 Amylase Ordered. EDMS 16:28 Basic Metabolic Profile Ordered. EDMS 16:28 CBC with Diff Ordered. EDMS 16:28 Lipase Ordered. EDMS 16:28 Liver Profile Ordered. EDMS 16:29 Gallbladder US Ordered. EDMS 16:29 KUB Ordered. EDMS 17:43 Metoclopramide 10 mg IV at 40 mg/hr once over 15 mins ordered. ar2 17:55 UA Reviewed. ar2 17:55 CBC with Diff Reviewed. ar2 17:55 Liver Profile Reviewed. ar2 17:55 Amylase Reviewed. ar2 17:55 Basic Metabolic Profile Reviewed. ar2 17:55 Lipase Reviewed. ar2 17:55 KUB Reviewed. ar2 17:56 NS 0.9% 1000 ml IV at bolus once ordered. ar2 18:26 Financial registration complete. gjb 18:36 [facility] [place] Payment Agreement was scanned into [employer] and attached to record. gjb 18:41 Gallbladder US Reviewed. ck7 18:44 CT ABD & PELVIS: IV Contrast Only Ordered. EDMS 18:53 Recheck Vital Signs, perform reassessment and enter into [employer] ordered. ck7 20:20 Gallbladder US Reviewed. ck7 20:20 CT ABD & PELVIS: IV Contrast Only Reviewed. ck7 20:53 Nitrofurantoin 100 mg PO once ordered. ck7 05/20 10:28 T-Sheet-- Draft Copy was scanned into [employer] and attached to record. gb Administered Medications: 05/19 16:46 Drug: Ondansetron 4 mg Route: IVP; Site: right antecubital; ja5 16:46 Drug: ketorolac 30 mg [ketorolac 30 mg/mL (1 mL) injection solution (1 mL)] Route: IVP; ja5 Site: right antecubital; 17:59 Drug: Metoclopramide 10 mg [metoclopramide 5 mg/mL injection solution] Route: IV; Rate: ja5 40 mg/hr; Infused Over: 15 mins; Site: right antecubital; 18:22 Follow up: IV Status: Completed infusion 18:04 Drug: NS 0.9% 1000 ml [sodium chloride 0.9 % intravenous solution] Route: IV; Rate: ja5 bolus; Site: right antecubital; 21:00 Drug: Nitrofurantoin 100 mg [nitrofurantoin macrocrystal 50 mg capsule (2 caps)] Route: jmbasia PO; Addendum: 05/22/2016 06:41 Radiology Callback: Radiology results faxed to primary care physician/provider. brittanie philip faxed formal report of us for fu mlg. Signatures: Dispatcher [employer] EDMS Minh Longoria MD MD ml Barnhardt, Gloria, Cosmo Valle, PA-C PA-C ar2 Chasity Ferro RN RN hs1 Phani Solorio, RPA-C RPA-[facility]7 Ty Coates RN RN jmb Beck, Gabriela gjb Anderson, Jessica RN ja5 The chart was reviewed and I authenticate all verbal orders and agree with the evaluation and treatment provided.Attachments: 05/19 18:36 [facility] Payment Agreement gjb 05/20 10:28 T-Sheet-- Draft Copy gb MTDD
--- NOTE | 2016-05-22 06:43 | EDDOCDS ---
Nurse's Notes [facility] Name: Yael Oh Age: 75 yrs Sex: Female : 1940 Arrival Date: 05/19/2016 Time: 13:23 Bed TR3 Private MD: Brittanie Hdz Diagnosis: Upper abdominal pain, unspecified;Urinary tract infection, site not specified Presentation: 05/19 13:38 Presenting complaint: Patient states: pain in right side for a long time (hurt 20 years hs1 ago) Patient states flare up today and unbearable. Patient states radiates from back into stomach. Patient reports bloating. Adult Sepsis Screening: The patient does not have new or worsening altered mentation. Patient's respiratory rate is less than 22. Systolic blood pressure is greater than 100. Patient has a qSOFA score of 0- Negative Sepsis Screen. Suicide/Homicide risk assessment- the patient denies having any suicidal and/or homicidal ideations and does not present with any other emotional, behavioral or mental health complaints. Status: Patient is not a inbound customer service representative or dependent. Transition of care: patient was not received from another setting of care. 13:38 Acuity: DAVE Level 3 hs1 13:38 Method Of Arrival: Walkin/Carried/Asstd hs1 13:45 Presenting complaint: patient tells this nurse at this time she was sent by [place] [id number] [facility] who wanted her to go by ambulance around 1130. Patient refused to come by ambulance. Triage Assessment: 13:44 General: Appears uncomfortable, Behavior is appropriate for age, cooperative. Pain: hs1 Location: back and abdomen Pain currently is 9 out of 10 on a pain scale. Neurological: No deficits noted. GI: Abdomen is non- distended Denies nausea, vomiting. Derm: Skin is pink, warm & dry. normal. Historical: - Allergies: QUINIDINE/QUININE & DERIVATIVES; Latex; TETRACYCLINES; Biaxin; Morphinestates very sensitive to it (resp depression noted last time administered); - Home Meds: 1. gabapentin 600 mg Oral tab 1 tab 3 times per day 2. amlodipine-valsartan 5-160 mg oral tab 1 tab once daily 3. Excedrin Migraine 250-250-65 mg Oral tab (Last dose: 05/18/2016) 4. rabeprazole 20 mg oral TbEC 1 tab once daily 5. pentazocine-naloxone 50-0.5 mg oral tab (Last dose: 05/19/2016 11:00) - PMHx: Fibromyalgia; Arthritis; Diverticulosis; Diverticulitis; Osteoporosis; symptahetic dystrophy; - PSHx: Hysterectomy; Tonsillectomy; bladder repair; - Social history: Smoking status: Patient states former smoker of tobacco. No barriers to communication noted, The patient speaks fluent Turkish, Speaks appropriately for age. - Family history: Not pertinent. - : The pt / caregiver states he / she is not on anticoagulants. Home medication list is obtained from the patient. - Exposure Risk Screening:: None identified. Screenin:46 Screening information is obtained from the patient. Fall risk: No risks identified. hs1 Assistance ADL's: requires no assistance with activities of daily living. Abuse/DV Screen: The patient / caregiver reports he/she is: not in a situation that causes fear, pain or injury. Nutritional screening: No deficits noted. Advance Directives: There is no active DNR order. home support is adequate. Assessment: 16:13 General: Appears uncomfortable, well nourished, well groomed, Behavior is anxious, ttb appropriate for age, cooperative, pleasant. Pain: Location: right upper/mid abd/flank. Neurological: Level of Consciousness is awake, alert. Respiratory: No deficits noted. Airway is patent Respiratory effort is even, unlabored. GI: Abdomen is "bloated" per pt firm Reports bloating, lower abdominal pain, upper abdominal pain. GI: Reports. : Denies burning with urination. Derm: Skin is normal. Injury Description: No known injury. 16:41 Adult Sepsis Screening: The patient does not have new or worsening altered mentation. dsf Patient's respiratory rate is less than 22. Systolic blood pressure is greater than 100. Patient has a qSOFA score of 0- Negative Sepsis Screen. General: Appears uncomfortable, Behavior is cooperative, fussy. Pain: Location: right upper quadrant Pain currently is 8 out of 10 on a pain scale. Pain radiates to epigastric area and right back Quality of pain is described as sharp, Pain began for months. Neurological: Level of Consciousness is awake, alert, Oriented to person, place, time. Cardiovascular: Capillary refill < 3 seconds. Respiratory: Airway is patent Respiratory effort is even, unlabored, Respiratory pattern is regular, symmetrical. Derm: Skin is pink, warm & dry. 17:50 Adult Sepsis Screening: The patient does not have new or worsening altered mentation. dsf Patient's respiratory rate is less than 22. Systolic blood pressure is greater than 100. Patient has a qSOFA score of 0- Negative Sepsis Screen. General: Appears in no apparent distress, Behavior is appropriate for age, cooperative. Neurological: Level of Consciousness is awake, alert. Cardiovascular: Capillary refill < 3 seconds. Respiratory: Airway is patent Respiratory effort is even, unlabored, Respiratory pattern is regular, symmetrical. Derm: Skin is pink, warm & dry. 19:03 General: Appears in no apparent distress, Behavior is appropriate for age, cooperative. dsf Pain: Location: right upper quadrant Pain currently is 3 out of 10 on a pain scale. Neurological: Level of Consciousness is awake, alert. Cardiovascular: Capillary refill < 3 seconds Heart tones S1 S2 present. Respiratory: Airway is patent Respiratory effort is even, unlabored, Respiratory pattern is regular, symmetrical, Breath sounds are clear bilaterally. GI: Abdomen is non- distended Bowel sounds present X 4 quads. Abd is soft and non tender X 4 quads. Denies nausea. Derm: Skin is pink, warm & dry. 20:19 General: Appears in no apparent distress, comfortable, Behavior is appropriate for age, jmb cooperative, Patient laying on stretcher, appears asleep, easy to arouse. NO voiced complaints at this time. . Neurological: Level of Consciousness is awake, alert, obeys commands, Oriented to person, place, time, Test Case Developer are equal bilaterally Speech is normal, Facial symmetry appears normal, Facial symmetry: tongue is midline. Respiratory: Airway is patent Respiratory effort is even, unlabored, Respiratory pattern is regular, symmetrical. 21:00 General: Patient instructed on discharge instructions. Patient asked if there were any jmb questions regarding discharge, patient stated no. IV discontinued per hospital policy. Patient signed discharge instructions. Patient discharged in stable condition. . Vital Signs: 13:26 BP 175 / 97; Pulse 116; Resp 18 S; Temp 98.5(O); Pulse Ox 96% on R/A; Weight 67.13 kg gr2 (R); Height 5 ft. 6 in. (167.64 cm) (R); Pain 9/10; 19:10 BP 156 / 75; Pulse 74; Resp 18; Temp 97.7; Pulse Ox 95% ; Pain 3/10; ajs 21:04 BP 142 / 75; Pulse 72; Resp 18; Temp 99.2; Pulse Ox 96% ; Pain 3/10; ajs 13:26 Body Mass Index 23.89 (67.13 kg, 167.64 cm) gr2 Vitals: 13:26 Log In Time: May 19, 2016 at 13:26. gr2 ED Course: 13:24 Patient visited by Cristina Fairchild. gr2 13:24 Patient moved to Waiting gr2 13:25 Brittanie Hdz RPA-C is Private Physician. gr2 13:27 Patient visited by Cristina Fairchild. gr2 13:27 Patient moved to Pre RCE gr2 13:40 Triage Initiated hs1 15:34 Patient moved to Triage 2 ct3 16:13 Cosmo Foy PA-C is PHCP. ar2 16:13 Charanjit Taylor MD is Attending Physician. ar2 16:13 Patient visited by Cosmo Foy PA-C. ar2 16:15 Patient visited by Saira Barron, BRANDI. ttb 16:25 Cassie Fallon, BRANDI is Primary Nurse. ttb 16:25 Angela Mooney,BRANDI is Primary Nurse. ttb 16:25 Patient moved to I2 / M2 ttb 16:40 Amylase Sent. dsf 16:40 Basic Metabolic Profile Sent. dsf 16:40 CBC with Diff Sent. dsf 16:40 Lipase Sent. dsf 16:40 Liver Profile Sent. dsf 16:40 Inserted saline lock: 20 gauge in right antecubital area The patient tolerated the dsf procedure well. 16:41 Patient visited by Viridiana Bruno,BRANDI. dsf 17:23 KUB Returned. EDMS 17:25 Patient moved to Ultrasound hgl 18:20 Gallbladder US Returned. EDMS 18:23 PHCP role handed off by Cosmo Foy PA-C ck7 18:23 Phani Solorio RPA-C is PHCP. ck7 18:36 [facility] [place] was [place] into [employer] and attached to record. gjb 18:39 Patient moved to I2 / M2 hgl 18:41 Patient visited by Phani Solorio RPA-C. ck7 19:04 Patient visited by Viridiana Bruno RN. dsf 19:11 Patient visited by Awilda Yoon. ajs 19:17 Gallbladder US Returned. EDMS 19:51 Patient visited by Phani Solorio RPA-C. ck7 20:16 CT ABD & PELVIS: IV Contrast Only Returned. EDMS 20:20 Patient visited by Ty Coates RN. jmb 20:50 Patient visited by Phani Solorio RPA-C. ck7 20:52 Brittanie Hdz RPA-C is Referral Physician. ck7 21:00 The patient / caregiver is instructed regarding the plan of care and ED course. jmb 21:00 Discontinued lock intact, bleeding controlled, pressure dressing applied, No jmb redness/swelling at site. No procedures done that require assistance. 21:04 Patient visited by Awilda Yoon. ajs 21:11 Patient moved to [address] 05/20 08:53 KUB Returned. EDMS 10:28 T-Sheet-- Draft Copy was scanned into [employer] and attached to record. gb Administered Medications: 05/19 16:46 Drug: Ondansetron 4 mg Route: IVP; Site: right antecubital; 5 16:46 Drug: ketorolac 30 mg [ketorolac 30 mg/mL (1 mL) injection solution (1 mL)] Route: IVP; ja5 Site: right antecubital; 17:59 Drug: Metoclopramide 10 mg [metoclopramide 5 mg/mL injection solution] Route: IV; Rate: ja5 40 mg/hr; Infused Over: 15 mins; Site: right antecubital; 18:22 Follow up: IV Status: Completed infusion ja5 18:04 Drug: NS 0.9% 1000 ml [sodium chloride 0.9 % intravenous solution] Route: IV; Rate: ja5 bolus; Site: right antecubital; 21:00 Drug: Nitrofurantoin 100 mg [nitrofurantoin macrocrystal 50 mg capsule (2 caps)] Route: jmb PO; Order Results: Lab Order: UA; SPEC'M 05/19/16 16:18 Test: APPEARANCE, URINE; Value: HAZY; Range: CLEAR; Status: F Test: COLOR, URINE; Value: STRAW; Range: YELLOW; Status: F Test: PH,URINE; Value: 6.0; Range: 5.0-9.0; Units: UNITS; Status: F Test: SPECIFIC GRAVITY URINE AUTO; Value: 1.005; Range: 1.002-1.035; Status: F Test: PROTEIN, URINE AUTO; Value: NEGATIVE; Range: NEGATIVE; Units: mg/dL; Status: F Test: GLUCOSE, URINE (UA) AUTO; Value: NEGATIVE; Range: NEGATIVE; Units: mg/dL; Status: F Test: KETONE, URINE AUTO; Value: TRACE; Range: NEGATIVE; Abnormal: Above high normal; Units: mg/dL; Status: F Test: UROBILINOGEN, URINE AUTO; Value: 0.2; Range: 0.0-2.0; Units: mg/dL; Status: F Test: BILIRUBIN, URINE AUTO; Value: NEGATIVE; Range: NEGATIVE; Status: F Test: NITRITE, URINE AUTO; Value: NEGATIVE; Range: NEGATIVE; Status: F Test: LEUKOCYTE ESTERASE, URINE AUTO; Value: 3+; Range: NEGATIVE; Abnormal: Above high normal; Status: F Test: BLOOD, URINE BLOOD; Value: NEGATIVE; Range: NEGATIVE; Status: F Test: WBC, URINE AUTO; Value: 144; Range: 0-3; Abnormal: Above high normal; Units: /HPF; Status: F Test: RBC, URINE AUTO; Value: 11; Range: 0-3; Abnormal: Above high normal; Units: /HPF; Status: F Test: BACTERIA, URINE AUTO; Value: 1+; Range: NEGATIVE; Abnormal: Above high normal; Status: F Test: SQUAMOUS EPITHELIAL CELL UR AU; Value: 1; Range: 0-6; Units: /HPF; Status: F Test: HYALINE CAST, URINE AUTO; Value: 0; Range: 0-1; Units: /LPF; Status: F Test: AMORPHOUS SEDIMENT; Value: SMALL; Range: NEGATIVE; Abnormal: Above high normal; Status: F Lab Order: Amylase; SPEC' 05/19/16 16:36 Test: AMYLASE; Value: 89; Range: 25-115; Units: U/L; Status: F Lab Order: Basic Metabolic Profile; SPEC' 05/19/16 16:36 Test: GLUCOSE, FASTING; Value: 85; Range: 83-110; Units: MG/DL; Status: F Test: BLOOD UREA NITROGEN; Value: 12; Range: 7-18; Units: MG/DL; Status: F Test: CREATININE FOR GFR; Value: 0.80; Range: 0.55-1.02; Units: MG/DL; Status: F Test: GLOMERULAR FILTRATION RATE; Value: > 60.0; Range: >39; Status: F Test: SODIUM LEVEL; Value: 143; Range: 136-145; Units: MEQ/L; Status: F Test: POTASSIUM SERUM; Value: 3.8; Range: 3.5-5.1; Units: MEQ/L; Status: F Test: CHLORIDE LEVEL; Value: 107; Range: 98-107; Units: MEQ/L; Status: F Test: CARBON DIOXIDE LEVEL; Value: 25; Range: 21-32; Units: MEQ/L; Status: F Test: ANION GAP; Value: 11; Range: 8-16; Units: MEQ/L; Status: F Test: CALCIUM LEVEL; Value: 9.2; Range: 8.8-10.2; Units: MG/DL; Status: F Test Note: ; Units are mL/min/1.73 m2 Chronic Kidney Disease Staging per NKF: Stage I & II GFR >=60 Normal to Mildly Decreased Stage III GFR 30-59 Moderately Decreased Stage IV GFR 15-29 Severely Decreased Stage V GFR <15 Very Little GFR Left ESRD GFR <15 on BR[employer]ILL[employer] HAND Lab Order: CBC with Diff; SPEC'M 05/19/16 16:36 Test: WHITE BLOOD COUNT; Value: 5.7; Range: 4.0-10.0; Units: K/mm3; Status: F Test: RED BLOOD COUNT; Value: 4.27; Range: 4.00-5.40; Units: M/mm3; Status: F Test: HEMOGLOBIN; Value: 13.5; Range: 12.0-16.0; Units: g/dl; Status: F Test: HEMATOCRIT; Value: 40.4; Range: 36.0-47.0; Units: %; Status: F Test: MEAN CORPUSCULAR VOLUME; Value: 94.6; Range: 80.0-96.0; Units: fl; Status: F Test: MEAN CORPUSCULAR HEMOGLOBIN; Value: 31.5; Range: 27.0-33.0; Units: pg; Status: F Test: MEAN CORPUSCULAR HGB CONC; Value: 33.3; Range: 32.0-36.5; Units: g/dl; Status: F Test: RED CELL DISTRIBUTION WIDTH; Value: 12.8; Range: 11.5-14.5; Units: %; Status: F Test: PLATELET COUNT, AUTOMATED; Value: 273; Range: 150-450; Units: k/mm3; Status: F Test: NEUTROPHILS %; Value: 57.3; Range: 36.0-66.0; Units: %; Status: F Test: LYMPH %; Value: 31.4; Range: 24.0-44.0; Units: %; Status: F Test: MONO %; Value: 6.1; Range: 0.0-5.0; Abnormal: Above high normal; Units: %; Status: F Test: EOS %; Value: 1.7; Range: 0.0-3.0; Units: %; Status: F Test: BASO %; Value: 0.2; Range: 0.0-1.0; Units: %; Status: F Test: LARGE UNSTAINED CELL %; Value: 3.3; Range: 0.0-4.0; Units: %; Status: F Test: NEUTROPHILS #; Value: 3.3; Range: 1.8-7.7; Units: K/mm3; Status: F Test: LYMPH #; Value: 1.8; Range: 1.5-4.5; Units: K/mm3; Status: F Test: MONO #; Value: 0.4; Range: 0.0-0.8; Units: K/mm3; Status: F Test: EOS #; Value: 0.1; Range: 0.0-0.50; Units: K/mm3; Status: F Test: BASO #; Value: 0.0; Range: 0.0-0.2; Units: K/mm3; Status: F Test: LARGE UNSTAINED CELL #; Value: 0.2; Range: 0.0-0.4; Units: K/mm3; Status: F Lab Order: Lipase; SPEC'M 05/19/16 16:36 Test: LIPASE; Value: 108; Range: 73-393; Units: U/L; Status: F Lab Order: Liver Profile; SPEC'M 05/19/16 16:36 Test: AST/SGOT; Value: 14; Range: 15-37; Abnormal: Below low normal; Units: U/L; Status: F Test: ALT/SGPT; Value: 18; Range: 12-78; Units: U/L; Status: F Test: ALKALINE PHOSPHATASE; Value: 88; Range: 45-117; Units: U/L; Status: F Test: BILIRUBIN,TOTAL; Value: 0.5; Range: 0.2-1.0; Units: MG/DL; Status: F Test: BILIRUBIN,DIRECT; Value: 0.1; Range: 0.0-0.2; Units: MG/DL; Status: F Test: TOTAL PROTEIN; Value: 7.4; Range: 6.4-8.2; Units: GM/DL; Status: F Test: ALBUMIN; Value: 4.2; Range: 3.2-5.2; Units: GM/DL; Status: F Test: ALBUMIN/GLOBULIN RATIO; Value: 1.31; Range: 1.00-1.93; Status: F Radiology Order: Gallbladder US Test: Gallbladder US REASON FOR EXAMINATION: Biliary Colic; Right upper quadrant sonography:; ; History: Right upper quadrant pain.; ; Comparison sonography is from April 06, 2009. Comparison CT study is from; June 19, 2014.; ; Findings: Scanning through the right upper quadrant of the abdomen demonstrates; tenderness while scanning over the gallbladder. Gallbladder is not dilated. Its; wall is not thickened. No stone or polyp is appreciated. Common bile duct is; normal measuring 0.6 cm in greatest diameter. No focal hepatic lesion is seen.; ; Scanning over the pancreas shows no evidence of mass or cyst. The main; pancreatic duct is somewhat dilated, however, measuring 4.7 or 5 mm. This; appears to be a change from the comparison CT study from 2014. No pancreatic; mass lesion is seen. There is no evidence of ascites. No right renal; abnormality is noted. The right kidney measures 10.1 x 3.8 x 4.5 cm.; ; Impression:; ; 1. Tenderness to scanning over the gallbladder. No evidence of stone or polyp.; ; 2. Main pancreatic duct is mildly dilated to 0.5 cm in diameter. No mass or; cyst is seen. Consider further pancreatic imaging.; ; ; Signed by; Kevin Cagle MD 05/19/2016 06:38 P; Radiology Order: KUB Test: KUB REASON FOR EXAMINATION: ruq pain; KUB, two views:; ; History: Right upper quadrant pain.; ; Air is present in small and large intestine. There are no air fluid levels or; dilated loops of intestine. There is no pneumoperitoneum.; ; IMPRESSION:; ; Nonspecific bowel gas pattern.; ; ; Signed by; David Rae MD 05/20/2016 08:19 A; Radiology Order: CT ABD & PELVIS: IV Contrast Only Test: CT ABD & PELVIS: IV Contrast Only REASON FOR EXAMINATION: abd pain, pancreatic duct dilation, r/o mass; CT abdomen and pelvis with IV, but without oral contrast:; ; History: Abdominal pain. Pancreatic duct dilation.; ; CT contrast dose: 100 ml of Isovue 370 is administered intravenously.; ; Comparison CT study June 19, 2014.; ; CT findings: Preliminary digital energy engineer radiograph is unremarkable. The lung; bases show no significant abnormality.; ; The liver shows mild diffuse fatty infiltration, but is otherwise homogeneous.; No focal liver mass lesion is seen. The spleen is normal in size and homogeneous; in texture. No adrenal lesion is seen on either side. The gallbladder shows no; abnormality. Pancreas shows no evidence of mass or cyst. By CT, main pancreatic; duct measures 3 mm in diameter. It is felt to be upper normal. It is not; significantly changed by CT scan from June 19, 2014. No retroperitoneal mass or; adenopathy is seen. Normal caliber aorta is seen. The kidneys enhance; symmetrically and are morphologically intact. There is a subcentimeter cortical; cyst posteriorly in the left kidney. Extrarenal pelvis configuration is seen; bilaterally. There is left colonic diverticulosis without CT evidence of; diverticulitis. Small and large intestinal bowel loops are unremarkable. The; patient is status post hysterectomy. No bony destructive lesion is seen. No; abdominal wall defect is observed.; ; Impression:; ; 1. Mild diffuse fatty infiltration of the liver.; ; 2. No significant pancreatic abnormality. Borderline pancreatic duct unchanged; from the 2014 study.; ; 3. Left colonic diverticulosis without CT evidence of diverticulitis.; ; 4. Status post hysterectomy.; ; ; Signed by; Kevin Cagle MD 05/19/2016 08:00 P; Outcome: 20:53 Discharge ordered by Provider. ck7 21:00 Discharge Assessment: Patient awake, alert and oriented x 3. No cognitive and/or jmb functional deficits noted. Patient verbalized understanding of disposition instructions. Patient awake and alert. obeys commands, Oriented to person, place and time. Patient verbalized understanding of disposition instructions. Patient has no functional deficits. patient administered narcotics - no. The following High Risk Discharge criteria are identified: None. Discharged to home ambulatory. Condition: stable Condition: improved. Discharge instructions given to patient, Instructed on discharge instructions, follow up and referral plans. medication usage, Demonstrated understanding of instructions, medications, Pt was receptive of discharge instructions/ teaching. Prescriptions given X 2. CT Study completed. Property sent home with patient. 21:19 Patient left the ED. karly Signatures: Dispatcher [employer] EDMS Lindsey Reagan, Reg Reg gb Cosmo Foy, PA-Jennifer PA-C ar2 Chasity Ferro, RN RN hs1 Emily Hollis, CUFF TURNER MACHINE OPERATOR CUFF TURNER MACHINE OPERATOR ct3 Viridiana Bruno,RN RN Awilda Hamilton, Bright hardyl Phani Solorio, RPA-C RPA-[id number] Saira Barron, RN RN Cristina Wiggins2 Ty Coates RN RN Chantelle Brady Jessica,RN RN ja5 MTDD
--- NOTE | 2016-05-22 06:44 | EDDOCDS ---
Physician Documentation [facility] Name: Yael Oh Age: 75 yrs Sex: Female : 1940 Arrival Date: 05/19/2016 Time: 13:23 Bed TR3 Private MD: Brittanie Hdz Disposition: 05/19/16 20:53 Discharged to Home/Self Care. Impression: Upper abdominal pain, unspecified, Urinary tract infection, site not specified. - Condition is Stable. - Discharge Instructions: Urinary Tract Infection, Abdominal Pain, Adult, [id number]. - Prescriptions for Macrobid 100 mg Oral Capsule - take 100 milligram by ORAL route every 12 hours for 10 days; 20 capsule. - Medication Reconciliation, Local Pharmacy Hours form. - Follow up: Brittanie Hdz RPA-C; When: 1 - 2 days; Reason: Recheck today's complaints, Continuance of care. - Problem is new. - Symptoms have improved. Historical: - Allergies: QUINIDINE/QUININE & DERIVATIVES; Latex; TETRACYCLINES; Biaxin; Morphinestates very sensitive to it (resp depression noted last time administered); - Home Meds: 1. gabapentin 600 mg Oral tab 1 tab 3 times per day 2. amlodipine-valsartan 5-160 mg oral tab 1 tab once daily 3. Excedrin Migraine 250-250-65 mg Oral tab (Last dose: 05/18/2016) 4. rabeprazole 20 mg oral TbEC 1 tab once daily 5. pentazocine-naloxone 50-0.5 mg oral tab (Last dose: 05/19/2016 11:00) - PMHx: Fibromyalgia; Arthritis; Diverticulosis; Diverticulitis; Osteoporosis; symptahetic dystrophy; - PSHx: Hysterectomy; Tonsillectomy; bladder repair; - Social history: Smoking status: Patient states former smoker of tobacco. No barriers to communication noted, The patient speaks fluent Turkish, Speaks appropriately for age. - Family history: Not pertinent. - : The pt / caregiver states he / she is not on anticoagulants. Home medication list is obtained from the patient. - Exposure Risk Screening:: None identified. Vital Signs: 05/19 13:26 BP 175 / 97; Pulse 116; Resp 18 S; Temp 98.5(O); Pulse Ox 96% on R/A; Weight 67.13 kg / gr2 148 lbs (R); Height 5 ft. 6 in. (167.64 cm) (R); Pain 9/10; 19:10 BP 156 / 75; Pulse 74; Resp 18; Temp 97.7; Pulse Ox 95% ; Pain 3/10; ajs 21:04 BP 142 / 75; Pulse 72; Resp 18; Temp 99.2; Pulse Ox 96% ; Pain 3/10; ajs 13:26 Body Mass Index 23.89 (67.13 kg, 167.64 cm) gr2 MDM: 16:16 UA Ordered. EDMS 16:26 IV Saline Lock ordered. ar2 16:26 Undress patient appropriately for examination ordered. ar2 16:26 Ondansetron 4 mg IVP once ordered. ar2 16:26 ketorolac 30 mg IVP once ordered. ar2 16:28 NOTHING BY MOUTH+DIET ordered. EDMS 16:28 Amylase Ordered. EDMS 16:28 Basic Metabolic Profile Ordered. EDMS 16:28 CBC with Diff Ordered. EDMS 16:28 Lipase Ordered. EDMS 16:28 Liver Profile Ordered. EDMS 16:29 Gallbladder US Ordered. EDMS 16:29 KUB Ordered. EDMS 17:43 Metoclopramide 10 mg IV at 40 mg/hr once over 15 mins ordered. ar2 17:55 UA Reviewed. ar2 17:55 CBC with Diff Reviewed. ar2 17:55 Liver Profile Reviewed. ar2 17:55 Amylase Reviewed. ar2 17:55 Basic Metabolic Profile Reviewed. ar2 17:55 Lipase Reviewed. ar2 17:55 KUB Reviewed. ar2 17:56 NS 0.9% 1000 ml IV at bolus once ordered. ar2 18:26 Financial registration complete. gjb 18:36 [facility] Payment Agreement was scanned into [employer] and attached to record. gjb 18:41 Gallbladder US Reviewed. ck7 18:44 CT ABD & PELVIS: IV Contrast Only Ordered. EDMS 18:53 Recheck Vital Signs, perform reassessment and enter into [employer] ordered. ck7 20:20 Gallbladder US Reviewed. ck7 20:20 CT ABD & PELVIS: IV Contrast Only Reviewed. ck7 20:53 Nitrofurantoin 100 mg PO once ordered. ck7 05/20 10:28 T-Sheet-- Draft Copy was scanned into [employer] and attached to record. gb Administered Medications: 05/19 16:46 Drug: Ondansetron 4 mg Route: IVP; Site: right antecubital; ja5 16:46 Drug: ketorolac 30 mg [ketorolac 30 mg/mL (1 mL) injection solution (1 mL)] Route: IVP; ja5 Site: right antecubital; 17:59 Drug: Metoclopramide 10 mg [metoclopramide 5 mg/mL injection solution] Route: IV; Rate: ja5 40 mg/hr; Infused Over: 15 mins; Site: right antecubital; 18:22 Follow up: IV Status: Completed infusion 18:04 Drug: NS 0.9% 1000 ml [sodium chloride 0.9 % intravenous solution] Route: IV; Rate: ja5 bolus; Site: right antecubital; 21:00 Drug: Nitrofurantoin 100 mg [nitrofurantoin macrocrystal 50 mg capsule (2 caps)] Route: jmbasia PO; Addendum: 05/22/2016 06:41 Radiology Callback: Radiology results faxed to primary care physician/provider. brittanie philip faxed formal report of us for fu mlg. Signatures: Dispatcher [employer] EDMS Minh Longoria MD MD ml Barnhardt, Gloria, Cosmo Valle, PA-C PA-C ar2 Chasity Ferro RN RN hs1 Phani Solorio, RPA-C RPA-[facility]7 Ty Coates RN RN jmb Beck, Gabriela gjb Anderson, Jessica RN ja5 The chart was reviewed and I authenticate all verbal orders and agree with the evaluation and treatment provided.Attachments: 05/19 18:36 [facility] Payment Agreement gjb 05/20 10:28 T-Sheet-- Draft Copy gb Chart Complete MTDD
--- NOTE | 2016-05-22 06:44 | EDDOCDS ---
[facility] Documentation [facility] Name: Yael Oh Age: 75 yrs Sex: Female : 1940 Arrival Date: 05/19/2016 Time: 13:23 Bed TR3 Private MD: Brittanie Hdz Disposition: 05/19/16 20:53 Discharged to Home/Self Care. Impression: Upper abdominal pain, unspecified, Urinary tract infection, site not specified. - Condition is Stable. - Discharge Instructions: Urinary Tract Infection, Abdominal Pain, Adult, [id number]. - Prescriptions for Macrobid 100 mg Oral Capsule - take 100 milligram by ORAL route every 12 hours for 10 days; 20 capsule. - Medication Reconciliation, Local Pharmacy Hours form. - Follow up: Brittanie Hdz RPA-C; When: 1 - 2 days; Reason: Recheck today's complaints, Continuance of care. - Problem is new. - Symptoms have improved. Historical: - Allergies: QUINIDINE/QUININE & DERIVATIVES; Latex; TETRACYCLINES; Biaxin; Morphinestates very sensitive to it (resp depression noted last time administered); - Home Meds: 1. gabapentin 600 mg Oral tab 1 tab 3 times per day 2. amlodipine-valsartan 5-160 mg oral tab 1 tab once daily 3. Excedrin Migraine 250-250-65 mg Oral tab (Last dose: 05/18/2016) 4. rabeprazole 20 mg oral TbEC 1 tab once daily 5. pentazocine-naloxone 50-0.5 mg oral tab (Last dose: 05/19/2016 11:00) - PMHx: Fibromyalgia; Arthritis; Diverticulosis; Diverticulitis; Osteoporosis; symptahetic dystrophy; - PSHx: Hysterectomy; Tonsillectomy; bladder repair; - Social history: Smoking status: Patient states former smoker of tobacco. No barriers to communication noted, The patient speaks fluent [place], Speaks appropriately for age. - Family history: Not pertinent. - : The pt / caregiver states he / she is not on anticoagulants. Home medication list is obtained from the patient. - Exposure Risk Screening:: None identified. Vital Signs: 05/19 13:26 BP 175 / 97; Pulse 116; Resp 18 S; Temp 98.5(O); Pulse Ox 96% on R/A; Weight 67.13 kg / gr2 148 lbs (R); Height 5 ft. 6 in. (167.64 cm) (R); Pain 9/10; 19:10 BP 156 / 75; Pulse 74; Resp 18; Temp 97.7; Pulse Ox 95% ; Pain 3/10; ajs 21:04 BP 142 / 75; Pulse 72; Resp 18; Temp 99.2; Pulse Ox 96% ; Pain 3/10; ajs 13:26 Body Mass Index 23.89 (67.13 kg, 167.64 cm) gr2 MDM: 16:16 UA Ordered. EDMS 16:26 IV Saline Lock ordered. ar2 16:26 Undress patient appropriately for examination ordered. ar2 16:26 Ondansetron 4 mg IVP once ordered. ar2 16:26 ketorolac 30 mg IVP once ordered. ar2 16:28 NOTHING BY MOUTH+DIET ordered. EDMS 16:28 Amylase Ordered. EDMS 16:28 Basic Metabolic Profile Ordered. EDMS 16:28 CBC with Diff Ordered. EDMS 16:28 Lipase Ordered. EDMS 16:28 Liver Profile Ordered. EDMS 16:29 Gallbladder US Ordered. EDMS 16:29 KUB Ordered. EDMS 17:43 Metoclopramide 10 mg IV at 40 mg/hr once over 15 mins ordered. ar2 17:55 UA Reviewed. ar2 17:55 CBC with Diff Reviewed. ar2 17:55 Liver Profile Reviewed. ar2 17:55 Amylase Reviewed. ar2 17:55 Basic Metabolic Profile Reviewed. ar2 17:55 Lipase Reviewed. ar2 17:55 KUB Reviewed. ar2 17:56 NS 0.9% 1000 ml IV at bolus once ordered. ar2 18:26 Financial registration complete. gjb 18:36 [facility] Payment Agreement was scanned into [employer] and attached to record. gjb 18:41 Gallbladder US Reviewed. ck7 18:44 CT ABD & PELVIS: IV Contrast Only Ordered. EDMS 18:53 Recheck Vital Signs, perform reassessment and enter into [employer] ordered. ck7 20:20 Gallbladder US Reviewed. ck7 20:20 CT ABD & PELVIS: IV Contrast Only Reviewed. ck7 20:53 Nitrofurantoin 100 mg PO once ordered. ck7 05/20 10:28 T-Sheet-- Draft Copy was scanned into [employer] and attached to record. gb Administered Medications: 05/19 16:46 Drug: Ondansetron 4 mg Route: IVP; Site: right antecubital; ja5 16:46 Drug: ketorolac 30 mg [ketorolac 30 mg/mL (1 mL) injection solution (1 mL)] Route: IVP; ja5 Site: right antecubital; 17:59 Drug: Metoclopramide 10 mg [metoclopramide 5 mg/mL injection solution] Route: IV; Rate: ja5 40 mg/hr; Infused Over: 15 mins; Site: right antecubital; 18:22 Follow up: IV Status: Completed infusion 18:04 Drug: NS 0.9% 1000 ml [sodium chloride 0.9 % intravenous solution] Route: IV; Rate: ja5 bolus; Site: right antecubital; 21:00 Drug: Nitrofurantoin 100 mg [nitrofurantoin macrocrystal 50 mg capsule (2 caps)] Route: jmbasia PO; Addendum: 05/22/2016 06:41 Radiology Callback: Radiology results faxed to primary care physician/provider. brittanie philip faxed formal report of us for fu mlg. Signatures: Dispatcher [employer] EDMS Minh Longoria MD MD ml Barnhardt, Gloria, Cosmo Valle, PA-C PA-C ar2 Chasity Ferro RN RN hs1 Phani Solorio, RPA-C RPA-[facility]7 Ty Coates RN RN jmb Beck, Gabriela gjb Anderson, Jessica RN ja5 The chart was reviewed and I authenticate all verbal orders and agree with the evaluation and treatment provided.Attachments: 05/19 18:36 [facility] Payment Agreement gjb 05/20 10:28 T-Sheet-- Draft Copy gb Chart Complete MTDD
== END 2016-05-19 21:19 | disposition home or self-care (01) ==
LOC: M ED 13:23
DX: R10.9 Unspecified abdominal pain (principal); N39.0 Urinary tract infection, site not specified; M79.7 Fibromyalgia; M19.90 Unspecified osteoarthritis, unspecified site; K57.90 Diverticulosis of intestine, part unspecified, without perforation or abscess without bleeding; M81.0 Age-related osteoporosis without current pathological fracture; G90.50 Complex regional pain syndrome I, unspecified; Z79.899 Other long term (current) drug therapy; Z88.8 Allergy status to other drugs, medicaments and biological substances; Z88.1 Allergy status to other antibiotic agents; Z88.5 Allergy status to narcotic agent; Z91.040 Latex allergy status; Z87.891 Personal history of nicotine dependence
CPT/HCPCS: 74000; 74177; 76705; 80048; 80076; 81001; 82150; 83690; 85025; 87086; 96365; 96375; 99284; J1885; J2405; J2765; Q9967

== ENCOUNTER → 2016-05-19 | Outpatient (REF) | payer MEDICARE ==
[~2016-05-19] MED LIST: /CELE20CA OR; ACIPHEX OR; DIOV160T5 OR; EXFORGE; IBUP600T OR; NEUR600T OR; TALWIN NX; VICO5TAB OR; VITA400C35 PO; excedrin OR; talwin OR
== END ==
LOC: M LAB REF 21:00
PROVIDERS: ATTEND Physician Assistant
DX: N39.0 Urinary tract infection, site not specified (principal); R10.31 Right lower quadrant pain

== ENCOUNTER → 2016-10-07 | Outpatient (REF) | payer MEDICARE ==
[2016-10-07 19:48] LABS: BASO % 0.4 % (0.0-1.0); EOS # 0.1 K/mm3 (0.0-0.50); EOS % 1.2 % (0.0-3.0); LARGE UNSTAINED CELL # 0.1 K/mm3 (0.0-0.4); LARGE UNSTAINED CELL % 1.8 % (0.0-4.0); LYMPH # 1.6 K/mm3 (1.5-4.5); LYMPH % 26.7 % (24.0-44.0); MEAN CORPUSCULAR HEMOGLOBIN 33.3 pg (27.0-33.0); MEAN CORPUSCULAR VOLUME 98.2 fl (80.0-96.0); MONO # 0.4 K/mm3 (0.0-0.8); MONO % 7.1 % (0.0-5.0); NEUTROPHILS # 3.4 K/mm3 (1.8-7.7); NEUTROPHILS % 62.8 % (36.0-66.0); PLATELET COUNT, AUTOMATED 266 k/mm3 (150-450); RED CELL DISTRIBUTION WIDTH 13.8 % (11.5-14.5); WHITE BLOOD COUNT 5.5 K/mm3 (4.0-10.0)
[2016-10-07 20:06] LABS: ALBUMIN 4.3 GM/DL (3.2-5.2); ALBUMIN/GLOBULIN RATIO 1.16 (1.00-1.93); ALKALINE PHOSPHATASE 85 U/L (45-117); ALT/SGPT 22 U/L (12-78); ANION GAP 8 MEQ/L (8-16); AST/SGOT 18 U/L (15-37); BILIRUBIN,TOTAL 0.4 MG/DL (0.2-1.0); BLOOD UREA NITROGEN 13 MG/DL (7-18); CALCIUM LEVEL 9.3 MG/DL (8.8-10.2); CARBON DIOXIDE LEVEL 29 MEQ/L (21-32); CHLORIDE LEVEL 104 MEQ/L (98-107); GLOMERULAR FILTRATION RATE > 60.0 (>39); GLUCOSE, FASTING 81 MG/DL (83-110); POTASSIUM SERUM 4.3 MEQ/L (3.5-5.1); SODIUM LEVEL 141 MEQ/L (136-145)
== END ==
LOC: M SFHCADAM 15:40
PROVIDERS: ATTEND Family Medicine
DX: R06.09 Other forms of dyspnea (principal); R53.83 Other fatigue

== ENCOUNTER → 2016-10-07 | Outpatient (CLI) | payer MEDICARE ==
--- NOTE | 2016-10-07 17:32 | REP ---
Clinical: Dyspnea on exertion . Comparison: 08/23/2013 Technique: PA and lateral. Findings: The mediastinum and cardiac silhouette are normal. The lung vazquez are clear and without acute consolidation, effusion, or pneumothorax. The skeletal structures are intact and normal. Impression: 1. No acute cardiopulmonary process. Signed by Milo Tellez MD 10/07/2016 05:24 P
== END ==
LOC: M ADAMS 15:41
PROVIDERS: ATTEND Family Medicine
DX: R06.09 Other forms of dyspnea (principal); R53.83 Other fatigue

== ENCOUNTER → 2016-10-25 | Outpatient (REF) | payer MEDICARE | LOC: M SFHCADAM 14:57 | PROVIDERS: ATTEND Family Medicine | DX: D75.89 Other specified diseases of blood and blood-forming organs (principal); E03.9 Hypothyroidism, unspecified; Z53.8 Procedure and treatment not carried out for other reasons ==

== ENCOUNTER → 2016-11-23 | Outpatient (CLI) | payer MEDICARE ==
--- NOTE | 2016-11-23 16:04 | REP ---
Nasal bone series three views: There is no nasal bone fracture. No air-fluid levels in the paranasal sinuses. The orbital rims appear intact. The the patient is edentulous. Impression: No nasal bone fracture. The Signed by Gopi Smith MD 11/23/2016 03:55 P
== END ==
LOC: M ADAMS 14:03
PROVIDERS: ATTEND Physician Assistant Medical
DX: S00.83XA Contusion of other part of head, initial encounter (principal); X58.XXXA Exposure to other specified factors, initial encounter; Y93.9 Activity, unspecified; Y92.9 Unspecified place or not applicable; Y99.8 Other external cause status

== ENCOUNTER → 2016-12-14 | Outpatient (REF) | payer MEDICARE ==
[2016-12-14 19:50] LABS: ALBUMIN 3.8 GM/DL (3.2-5.2); ALBUMIN/GLOBULIN RATIO 1.09 (1.00-1.93); ALKALINE PHOSPHATASE 86 U/L (45-117); ALT/SGPT 21 U/L (12-78); ANION GAP 8 MEQ/L (8-16); AST/SGOT 15 U/L (15-37); BILIRUBIN,TOTAL 0.3 MG/DL (0.2-1.0); BLOOD UREA NITROGEN 15 MG/DL (7-18); CALCIUM LEVEL 9.1 MG/DL (8.8-10.2); CARBON DIOXIDE LEVEL 29 MEQ/L (21-32); CHLORIDE LEVEL 104 MEQ/L (98-107); CHOLESTEROL LEVEL 217 MG/DL (<200); CREATININE FOR GFR 0.74 MG/DL (0.55-1.02); FREE T4 0.87 NG/DL (0.76-1.46); GLOMERULAR FILTRATION RATE > 60.0 (>39); GLUCOSE, FASTING 134 MG/DL (83-110); POTASSIUM SERUM 3.9 MEQ/L (3.5-5.1); SODIUM LEVEL 141 MEQ/L (136-145); TOTAL PROTEIN 7.3 GM/DL (6.4-8.2); TRIGLYCERIDES LEVEL 109 MG/DL (<150)
[2016-12-14 20:36] LABS: MEAN CORPUSCULAR HEMOGLOBIN 33.9 pg (27.0-33.0); MEAN CORPUSCULAR HGB CONC 34.3 g/dl (32.0-36.5); MEAN CORPUSCULAR VOLUME 98.6 fl (80.0-96.0); RED CELL DISTRIBUTION WIDTH 12.7 % (11.5-14.5)
== END ==
LOC: M SFHCADAM 13:08
PROVIDERS: ATTEND Physician Assistant
DX: I10 Essential (primary) hypertension (principal); K21.9 Gastro-esophageal reflux disease without esophagitis; J01.00 Acute maxillary sinusitis, unspecified; E55.9 Vitamin D deficiency, unspecified

== ENCOUNTER → 2017-01-31 | Outpatient (CLI) | payer MEDICARE ==
--- NOTE | 2017-01-31 13:11 | REP ---
Chest x-ray: Two views. History: Low abdominal pain. Comparison study: October 07, 2016. Findings: The lungs are symmetrically aerated and free of infiltrate. Pleural angles are sharp. Heart size is normal. There are some degenerative changes in the thoracic spine. Pulmonary vasculature is not increased. Impression: No active disease. Signed by Kevin Cagle MD 01/31/2017 02:48 P
== END ==
LOC: M ADAMS 11:58
PROVIDERS: ATTEND Family Medicine
DX: R05 Cough (principal)

== ENCOUNTER → 2017-09-14 | Outpatient (REF) | payer MEDICARE ==
[2017-09-14 19:44] LABS: BASO % 0.3 % (0.0-1.0); EOS # 0.1 10^3/uL (0.0-0.50); EOS % 1.7 % (0.0-3.0); HEMATOCRIT 38.8 % (36.0-47.0); HEMOGLOBIN 12.7 g/dl (12.0-15.5); IMMATURE GRANULOCYTE % 0.3 % (0-3.0); LYMPH # 1.6 10^3/uL (1.5-4.5); LYMPH % 26.2 % (24.0-44.0); MEAN CORPUSCULAR HEMOGLOBIN 31.9 pg (27.0-33.0); MEAN CORPUSCULAR HGB CONC 32.7 g/dl (32.0-36.5); MEAN CORPUSCULAR VOLUME 97.5 fl (80.0-96.0); MONO # 0.6 10^3/uL (0.0-0.8); MONO % 9.8 % (0.0-5.0); NEUTROPHILS # 3.7 10^3/uL (1.8-7.7); NEUTROPHILS % 61.7 % (36.0-66.0); PLATELET COUNT, AUTOMATED 293 10^3/uL (150-450); RED BLOOD COUNT 3.98 10^6/uL (4.00-5.40); RED CELL DISTRIBUTION WIDTH 14.5 % (11.5-14.5)
[2017-09-14 20:02] LABS: ALBUMIN 4.1 GM/DL (3.2-5.2); ALBUMIN/GLOBULIN RATIO 1.21 (1.00-1.93); ALKALINE PHOSPHATASE 87 U/L (45-117); ALT/SGPT 19 U/L (12-78); ANION GAP 9 MEQ/L (8-16); AST/SGOT 11 U/L (7-37); BILIRUBIN,TOTAL 0.3 MG/DL (0.2-1.0); BLOOD UREA NITROGEN 17 MG/DL (7-18); CARBON DIOXIDE LEVEL 26 MEQ/L (21-32); CHLORIDE LEVEL 107 MEQ/L (98-107); CREATININE FOR GFR 1.13 MG/DL (0.55-1.30); FREE T4 0.89 NG/DL (0.76-1.46); GLOMERULAR FILTRATION RATE 50.1 (>39); GLUCOSE, FASTING 74 MG/DL (70-100); POTASSIUM SERUM 4.1 MEQ/L (3.5-5.1); SODIUM LEVEL 142 MEQ/L (136-145); TOTAL PROTEIN 7.5 GM/DL (6.4-8.2)
== END ==
LOC: M SFHCADAM 10:21
DX: M79.7 Fibromyalgia (principal)
CPT/HCPCS: 84443

== ENCOUNTER → 2018-02-02 | Outpatient (REF) | payer MEDICARE ==
[2018-02-02 19:56] LABS: BASO % 0.2 % (0.0-1.0); HEMATOCRIT 41.3 % (36.0-47.0); HEMOGLOBIN 13.4 g/dl (12.0-15.5); IMMATURE GRANULOCYTE % 0.5 % (0-3.0); LYMPH # 1.4 10^3/uL (1.5-4.5); LYMPH % 13.1 % (24.0-44.0); MEAN CORPUSCULAR HEMOGLOBIN 32.4 pg (27.0-33.0); MEAN CORPUSCULAR HGB CONC 32.4 g/dl (32.0-36.5); MEAN CORPUSCULAR VOLUME 99.8 fl (80.0-96.0); MONO # 0.6 10^3/uL (0.0-0.8); MONO % 6.1 % (0.0-5.0); NEUTROPHILS # 8.4 10^3/uL (1.8-7.7); NEUTROPHILS % 80.1 % (36.0-66.0); PLATELET COUNT, AUTOMATED 327 10^3/uL (150-450); RED BLOOD COUNT 4.14 10^6/uL (4.00-5.40); RED CELL DISTRIBUTION WIDTH 13.2 % (11.5-14.5); WHITE BLOOD COUNT 10.4 10^3/uL (4.0-10.0)
[2018-02-02 20:07] LABS: ALBUMIN 4.5 GM/DL (3.2-5.2); ALBUMIN/GLOBULIN RATIO 1.32 (1.00-1.93); ALKALINE PHOSPHATASE 83 U/L (45-117); ALT/SGPT 20 U/L (12-78); ANION GAP 9 MEQ/L (8-16); AST/SGOT 14 U/L (7-37); BILIRUBIN,TOTAL 0.4 MG/DL (0.2-1.0); BLOOD UREA NITROGEN 17 MG/DL (7-18); CALCIUM LEVEL 9.7 MG/DL (8.8-10.2); CARBON DIOXIDE LEVEL 30 MEQ/L (21-32); CHLORIDE LEVEL 103 MEQ/L (98-107); CREATININE FOR GFR 0.92 MG/DL (0.55-1.30); GLOMERULAR FILTRATION RATE > 60.0 (>39); GLUCOSE, FASTING 94 MG/DL (70-100); POTASSIUM SERUM 4.2 MEQ/L (3.5-5.1); SODIUM LEVEL 142 MEQ/L (136-145); TOTAL PROTEIN 7.9 GM/DL (6.4-8.2)
== END ==
LOC: M LABDRWAD 19:25
DX: I10 Essential (primary) hypertension (principal)
CPT/HCPCS: 80053

== ENCOUNTER → 2018-03-06 | Outpatient (CLI) | payer MEDICARE | LOC: M ADAMS 13:46 | DX: R05 Cough (principal) | CPT/HCPCS: 71046 ==

== ENCOUNTER → 2018-06-12 | Outpatient (REF) | payer MEDICARE ==
[2018-06-12 12:36] LABS: BASO % 0.6 % (0.0-1.0); EOS # 0.1 10^3/uL (0.0-0.50); EOS % 2.4 % (0.0-3.0); HEMATOCRIT 39.8 % (36.0-47.0); HEMOGLOBIN 13.3 g/dl (12.0-15.5); LYMPH # 1.5 10^3/uL (1.5-4.5); MEAN CORPUSCULAR HEMOGLOBIN 32.5 pg (27.0-33.0); MEAN CORPUSCULAR HGB CONC 33.4 g/dl (32.0-36.5); MEAN CORPUSCULAR VOLUME 97.3 fl (80.0-96.0); MONO # 0.5 10^3/uL (0.0-0.8); MONO % 10.1 % (0.0-5.0); NEUTROPHILS # 3.1 10^3/uL (1.8-7.7); NEUTROPHILS % 58.5 % (36.0-66.0); PLATELET COUNT, AUTOMATED 363 10^3/uL (150-450); RED BLOOD COUNT 4.09 10^6/uL (4.00-5.40); WHITE BLOOD COUNT 5.3 10^3/uL (4.0-10.0)
[2018-06-12 13:24] LABS: ALBUMIN 3.9 GM/DL (3.2-5.2); ALT/SGPT 15 U/L (12-78); BILIRUBIN,TOTAL 0.2 MG/DL (0.2-1.0); BLOOD UREA NITROGEN 11 MG/DL (7-18); CARBON DIOXIDE LEVEL 28 MEQ/L (21-32); CHLORIDE LEVEL 107 MEQ/L (98-107); CREATININE FOR GFR 0.77 MG/DL (0.55-1.30); GLOMERULAR FILTRATION RATE > 60.0 (>39); GLUCOSE, FASTING 84 MG/DL (70-100); POTASSIUM SERUM 4.2 MEQ/L (3.5-5.1); SODIUM LEVEL 142 MEQ/L (136-145); TOTAL PROTEIN 7.3 GM/DL (6.4-8.2)
[2018-06-12 13:25] LABS: CHOLESTEROL RISK RATIO 3.65 (<5)
== END ==
LOC: M SFHCADAM 10:28
PROVIDERS: ATTEND Family Medicine
DX: R10.30 Lower abdominal pain, unspecified (principal); I10 Essential (primary) hypertension; Z87.19 Personal history of other diseases of the digestive system

== ENCOUNTER → 2018-06-16 | Outpatient (CLI) | payer MEDICARE ==
[~2018-06-16] MED LIST changes: +GASTROGRAFIN SOLUTION 30ML (Q9963) As Ordered ONE; +ISOVUE-370 76% 100ML VIAL (Q9967) As Ordered ONE
--- NOTE | 2018-06-16 16:34 | REP ---
CT ABDOMEN AND PELVIS WITH ORAL AND IV CONTRAST: TECHNIQUE: Axial contrast enhanced images from the lung bases to the pubic symphysis using 100 mL Isovue 370 intravenous contrast material with multiplanar reformations. Visualized lung bases demonstrate mild interstitial fibrotic change. Liver, spleen, adrenals, pancreas and kidneys are unremarkable except for a tiny cyst in the posterior left kidney. There is no hydronephrosis bilaterally. There is atherosclerotic calcification of the abdominal aorta without aneurysm. There is no adenopathy, free air or free fluid. No bowel wall thickening is seen. Sigmoid and left colonic diverticulosis is noted without acute diverticulitis. The patient appears to have had a hysterectomy previously. The urinary bladder is unremarkable. No anterior abdominal wall defect is seen. There are degenerative changes of the spine. There is a small hiatal hernia. IMPRESSION: Small hiatal hernia. Sigmoid and left colonic diverticulosis without evidence of acute diverticulitis. No evidence of bowel inflammation. No free air or free fluid. Electronically Signed by Gopi Morataya MD 06/19/2018 12:05 P
== END ==
LOC: M RAD 12:27
PROVIDERS: ATTEND Family Medicine
DX: R10.30 Lower abdominal pain, unspecified (principal); K44.9 Diaphragmatic hernia without obstruction or gangrene; K57.30 Diverticulosis of large intestine without perforation or abscess without bleeding
CPT/HCPCS: 74177; Q9963; Q9967

== ENCOUNTER → 2018-08-24 | Outpatient (CLI) | payer MEDICARE ==
[~2018-08-24] MED LIST changes: -/CELE20CA OR; +CELE1CAP4 OR; -GASTROGRAFIN SOLUTION 30ML (Q9963) As Ordered ONE; -ISOVUE-370 76% 100ML VIAL (Q9967) As Ordered ONE
== END ==
LOC: M LABDRWAD 14:12
PROVIDERS: ATTEND Internal Medicine Gastroenterology
DX: R19.7 Diarrhea, unspecified (principal)

== ENCOUNTER → 2018-10-05 | Outpatient (REF) | payer MEDICARE ==
[2018-10-05 18:23] LABS: ALBUMIN 3.9 GM/DL (3.2-5.2); ALT/SGPT 18 U/L (12-78); BILIRUBIN,TOTAL 0.4 MG/DL (0.2-1.0); BLOOD UREA NITROGEN 12 MG/DL (7-18); CALCIUM LEVEL 8.6 MG/DL (8.8-10.2); CARBON DIOXIDE LEVEL 28 MEQ/L (21-32); CHLORIDE LEVEL 106 MEQ/L (98-107); FREE T4 0.75 NG/DL (0.76-1.46); GLOMERULAR FILTRATION RATE > 60.0 (>39); GLUCOSE, FASTING 81 MG/DL (70-100); NT-PRO BNP 206 PG/ML (<450); POTASSIUM SERUM 3.8 MEQ/L (3.5-5.1); SODIUM LEVEL 140 MEQ/L (136-145); TOTAL PROTEIN 7.4 GM/DL (6.4-8.2)
== END ==
LOC: M SFHCADAM 16:26
PROVIDERS: ATTEND Family Medicine
DX: R60.0 Localized edema (principal)

== ENCOUNTER → 2018-10-18 | Outpatient (CLI) | payer MEDICARE ==
--- NOTE | 2018-10-18 15:04 | REP ---
LEFT ANKLE SERIES: FOUR VIEWS. HISTORY: Pain in the left ankle. Comparison radiographs of the left ankle are from January 08, 2015. FINDINGS: There is old benign periosteal reaction along the medial cortex of the distal tibia consistent with healed or healing stress fracture. I note that MRI study was positive for stress fracture of the distal tibia on the left, dated April 14, 2015. No acute fracture is seen. No erosive changes seen. There is mild diffuse soft tissue swelling in the calf. IMPRESSION: No acute bony abnormality. Findings consistent with healed or healing distal tibial stress fracture. Electronically Signed by Kevin Cagle MD 10/18/2018 04:38 P
--- NOTE | 2018-10-18 17:05 | REP ---
BILATERAL FOOT COMPLETE: 10/18/2018. Clinical history: Twisted foot. Bilateral pain feet and left ankle LEFT FOOT: Four views are provided. There are degenerative changes with marginal osteophytes and spurring dorsally at the TMT joints. The talonavicular and calcaneocuboid joints are normal. Subtalar joints were intact. Spurs at the medial malleolar tip noted along with a central lucency in the articular aspect proximal phalanx of the third toe suggesting cortical disruption and fracture. There is a healed fracture with periosteal reaction in the distal shaft of the third metatarsal and the two metatarsals are intact. The MTP joints show minor degenerative change. The IP joints show narrowing. Bones are demineralized. No heel spurs. Impression: 1. Advanced degenerative changes dorsal aspect of the TMT joints with bones demineralized. 2. Appears to be a nondisplaced fracture centrally articular aspect proximal head proximal phalanx third digit. Degenerative changes at IP joints and ankle. RIGHT FOOT: Four views are provided. There are dorsal spurs at the TMT joint seen on the lateral view. MTP joint of the great toe with some mild degenerative change and narrowing. The other MTP joints intact. Phalanges show no fracture, IP joints with some mild degenerative change. Small spurs inferior margins of the ankle malleoli. Tarsal bones and their articulations with the talus and navicular normal. Subtalar joints intact. Impression: 1. Degenerative changes at the first MTP joint, IP joints and particularly the TMT joints without fracture, avulsion, erosion or other acute finding. Electronically Signed by Twin Wharton MD 10/19/2018 08:15 A
== END ==
LOC: M ADAMS 12:54
PROVIDERS: ATTEND Family Medicine
DX: M19.071 Primary osteoarthritis, right ankle and foot (principal); M19.072 Primary osteoarthritis, left ankle and foot; M77.9 Enthesopathy, unspecified

== ENCOUNTER → 2018-11-10 | Outpatient (REF) | payer MEDICARE ==
[2018-11-10 20:35] LABS: FREE T4 0.78 NG/DL (0.76-1.46); THYROID STIMULATING HORMONE 3.91 uIU/ML (0.358-3.740)
== END ==
LOC: M SFHCADAM 14:00
PROVIDERS: ATTEND Family Medicine
DX: R79.89 Other specified abnormal findings of blood chemistry (principal)

== ENCOUNTER → 2018-11-23 | Outpatient (CLI) | payer MEDICARE ==
--- NOTE | 2018-11-23 16:17 | REP ---
Right tib-fib series: Two views. History: Pain in the right leg. Findings: AP and lateral views of the right tibia and fibula demonstrate patellofemoral narrowing and spur formation. Bones, joints and soft tissues are otherwise unremarkable. No acute bony abnormality. Impression: Mild patellofemoral spurring. No acute bony abnormality. Electronically Signed by Kevin Cagle MD 11/23/2018 05:40 P
== END ==
LOC: M ADAMS 13:08
PROVIDERS: ATTEND Physician Assistant
DX: M25.761 Osteophyte, right knee (principal)

== ENCOUNTER → 2018-11-24 | Outpatient (CLI) | payer MEDICARE ==
--- NOTE | 2018-11-24 12:44 | REP ---
RIGHT LOWER EXTREMITY SONOGRAM: HISTORY: Pain and swelling in the anterior right lower leg times 4 days. The patient reports a raised bump in that area. FINDINGS: Scanning in the area of the palpable abnormality demonstrates a complex anechoic structure measuring 2.1 x 2.2 x 0.6 cm in the subcutaneous fat layer. This is nonspecific. It is compatible with a thrombosed superficial vein, hematoma seroma, or other cystic lesion. Electronically Signed by Kevin Cagle MD 11/24/2018 12:50 P
== END ==
LOC: M RAD 10:34
PROVIDERS: ATTEND Physician Assistant
DX: R22.41 Localized swelling, mass and lump, right lower limb (principal)

== ENCOUNTER → 2019-02-15 | Outpatient (CLI) | payer MEDICARE ==
--- NOTE | 2019-03-07 02:40 | ECWPNPC ---
PATIENT NAME: JAYASHREE [place] : 1940 GENDER: FEMALE VISIT DATE: 02/15/2019 DISCHARGE DATE: 02/15/19 1227 VISIT LOCKED DATE TIME: PHYSICIAN: MADISYN TOBIN RESOURCE: MADISYN TOBIN REASON FOR APPOINTMENT 1. FIBROMYALGIA,DJD,RSD HISTORY OF PRESENT ILLNESS PAIN SCREENIN YO FEMALE REFERRED BY DR SANDRA TO EVALUATE CHRONIC GENERALIZED BACK PAIN WITH HISTORY OF FIBROMYALGIA AND ARTHRITIS.HAS TRIALED MULTIPLE MEDICATIONS AND CURRENTLY USING TRAMADOL AND GABAPENTIN AND REPORTING MINIMAL IMPROVEMENT.RATING PAIN VAS 7/10.DESCRIBES PAIN CONSTANT,ACHING AND BURNING.PAIN AWAKENS HER AT NIGHT FREQUENTLYDENIES RECENT FEVER,ILLNESS OR WEIGHT LOSS.DENIES BOWEL OR BLADDER INCONTINENCE. PATIENT HAS A COMPLAINT OF ACUTE OR CHRONIC PAIN :YES FALL RISK SCREENING: SCREENING :NO FALLS REPORTED IN THE LAST YEAR CURRENT MEDICATIONS TAKING AMLODIPINE BESYLATE 5 MG TABLET 1 TABLET ORALLY ONCE A DAY TAKING RABEPRAZOLE SODIUM 20 MG TABLET DELAYED RELEASE 1 TABLET ORALLY ONCE A DAY TAKING TRAMADOL HCL 50 MG TABLET (SCHEDULE IV DRUG) TAKE ONE TABLET BY MOUTH EVERY 4 TO 6 HOURS NEEDED FOR PAIN MAXIMUM DAILY DOSE 5 ORAL TAKING TIZANIDINE HCL 2 MG CAPSULE TAKE 1 2 CAPSULES BY MOUTH THREE TIMES A DAY NEEDED ORAL TAKING GABAPENTIN 600 MG TABLET 1 TABLET ORALLY THREE TIMES A DAY, NOTES: TAKING EXCEDRIN EXTRA STRENGTH 250-250-65 MG TABLET 2 TABLETS NEEDED ORALLY EVERY 6 HRS TAKING FLONASE 50 MCG/ACT SUSPENSION 1 SPRAY IN EACH NOSTRIL NASALLY ONCE A DAY TAKING LOSARTAN POTASSIUM 100 MG TABLET 1 TABLET ORALLY ONCE A DAY NOT-TAKING PENTAZOCINE-NALOXONE 50-0.5 MG TABLET 1 TABLET NEEDED ORALLY EVERY 4 HRS, NOTES: DR. [place] MEDICATION LIST REVIEWED AND RECONCILED WITH THE PATIENT PAST MEDICAL HISTORY HYPERLIPIDEMIA GERD HH HTN VITAMIN D DEFICIENCY REFLEX SYMPATHETIC DYSTROPHY - DEPRESSION CHRONIC DIARRHEA - [facility] DONE 10/2015 (NEGATIVE GI PANEL, NEG CELIAC PANEL, EGD/COLONOSCOPY NEGATIVE BX FOR MICROSCOPIC COLITIS) FATTY LIVER (CT 05/2016) SLEEP APNEA, NOT USING A CPAP BOTH FIBROMALGIA AND DEGENERATIVE JOINT DISEASE DIVERTICULITIS ALLERGIES QUININE SULFATE: HIVES - ALLERGY LATEX (FOR ALLERGY USE ONLY): HIVES - ALLERGY TETRACYCLINE HCL: NAUSEA/VOMITING - ALLERGY BIAXIN: NAUSEA/VOMITING - ALLERGY ALEVE: BECAME VERY TIRED - SIDE EFFECTS SURGICAL HISTORY TONSILLECTOMY 1975 D&C 1988 HYSTERECTOMY - NORMAL UTERUS, SQUAMOUS METAPLASIA CHANGES IN CERVIX, + HPV 2011 EGD/COLONOSCOPY - BIOPSIES GE JUNCTION SHOWED CHRONIC INFLAMMATION, TERMINAL ILEUM AND COLON - NO PATHOLOGICAL FEATURES 2008 COLONOSCOPY - NEGATIVE FOR MICROSCOPIC COLITIS 10/2015 EGD - MOD HH, Z-LINE 10/2015 FAMILY HISTORY FATHER: MULTIPLE MYELOMA MOTHER: CVA, CHF, DIAGNOSED WITH UNSPECIFIED CEREBRAL ARTERY OCCLUSION WITH CEREBRAL INFARCTION PATERNAL GRAND FATHER: 57 PR MATERNAL AUNT: 57 Y/O PR NO H/O DM. NO H/O BREAST CANCER OR COLON CANCER. SOCIAL HISTORY GENERAL: TOBACCO USE ARE YOU A:FORMER SMOKER HOW LONG HAS IT BEEN SINCE YOU LAST SMOKED?> 10 YEARS HIV / HEP-C SCREENING HIV TEST OFFERED TO PATIENT:NO HEP-C TEST OFFERED TO PATIENT:NO EDUCATION LEVEL OF EDUCATION:FINISHED HIGH SCHOOL COSMETOLGY DIET: REGULAR. LANGUAGE DUTCH. DOMESTIC VIOLENCE DO YOU FEEL SAFE IN YOUR ENVIRONMENT?YES BMI CARE GOAL FOLLOW-UP ABOVE NORMAL BMI FOLLOW-UPDIETARY MANAGEMENT EDUCATION, GUIDANCE, AND COUNSELING RECREATIONAL DRUG USE DENIES. EXERCISE: NO REGULAR EXERCISE. LEARNING BARRIERS / SPECIAL NEEDS CHANGE FROM LAST VISIT?NO BARRIERS TO LEARNING?NO HEARING IMPAIRED?YES VISION IMPAIRED?YES COGNITIVELY IMPAIRED?NO :HEARING AIDES :CORRECTIVE LENSES READINESS TO LEARN?YES LEARNING PREFERENCES?NO LEARNING CAPABILITIES PRESENT?YES EMOTIONAL BARRIERS?NO SPECIAL DEVICES?NO MUNICIPAL BOND TRADER NEEDED?NO LUNG CANCER SCREENING SMOKING STATUS:FORMER SMOKER PAIN CLINIC PFS, CLERGY, PUBLIC HEALTH REFERRALS HAS THE PATIENT BEEN EDUCATED REGARDING HIS/HER PLAN OF CARE?YES HAS THE PATIENT BEEN EDUCATED REGARDING PAIN, THE RISK FOR PAIN, THE IMPORTANCE OF EFFECTIVE PAIN MANAGEMENT, AND THE PAIN ASSESSMENT PROCESS?YES LATEX QUESTIONNAIRE LATEX ALLERGY : HAVE YOU EVER DEVELOPED ANY TYPE OF REACTION AFTER HANDLING LATEX PRODUCTS SUCH RUBBER GLOVES, CONDOMS, DIAPHRAGMS, BALLOONS, SOCKS, OR UNDERWEAR?YES BANDAIDS LATEX ALLERGY : HAVE YOU EVER DEVELOPED ANY TYPE OF REACTION DURING OR AFTER DENTAL APPOINTMENT, VAGINAL/RECTAL EXAMINATION, SURGICAL PROCEDURE, OR ANY OTHER EXPOSURE?NO - PLEASE INDICATE :RUBBER GLOVES, OTHER (DOCUMENT IN NOTES) DATE ASKED : 06/08/2018 LATEX RISK : HAVE YOU EVER HAD ANY DIFFICULTY BREATHING OR HIVES AFTER EATING OR HANDLING ANY FRUITS, OR VEGETABLES; SUCH KIWI, BANANAS, STONE FRUITS, OR CHESTNUTSNO LATEX RISK : DO YOU HAVE A PREVIOUS PERSONAL HISTORY OF MORE THAN NINE SURGERIES, SPINA BIFIDA, OR REPEATED CATHERIZATIONS? NO LATEX RISK : ARE YOU FREQUENTLY EXPOSED TO LATEX PRODUCTS IN YOUR OCCUPATION?NO CAFFEINE CAFFEINE USE?YES HOW OFTEN AND HOW MUCH? 1 CUP OF COFFEE DAILY,1-4 CUPS OF TEA DAILY ADVANCE DIRECTIVE ADVANCE DIRECTIVE DISCUSSED WITH PATIENT:YES HCP IS DAUGHTER ROSA CHURCH NO QUAKER BELIEFS THAT WOULD IMPACT HEALTH CARE. MARITAL STATUS: . ALCOHOL SCREENING DID YOU HAVE A DRINK CONTAINING ALCOHOL IN THE PAST YEAR?YES HOW OFTEN DID YOU HAVE SIX OR MORE DRINKS ON ONE OCCASION IN THE PAST YEAR?NEVER (0 POINTS) HOW MANY DRINKS DID YOU HAVE ON A TYPICAL DAY WHEN YOU WERE DRINKING IN THE PAST YEAR?1 OR 2 (0 POINTS) HOW OFTEN DID YOU HAVE A DRINK CONTAINING ALCOHOL IN THE PAST YEAR?FOUR OR MORE TIMES A WEEK (4 POINTS) POINTS4 INTERPRETATIONPOSITIVE OCCUPATION: RETIRED. SEXUAL HX HAD SEX IN THE LAST 12 MONTHS (VAGINAL, ORAL, OR ANAL)?NO SHE ENJOYS READING AND SPENDING TIME WITH HER FAMILY. HOSPITALIZATION/MAJOR DIAGNOSTIC PROCEDURE SURGERY CHILDBIRTH DIVERTICULITIS MIGRAINE 1979 CYST AGE 22 REVIEW OF SYSTEMS REVIEWED BY: PROVIDER: MADISYN JARVIS . CONSTITUTIONAL: ANY CHANGE IN YOUR MEDICAL CONDITION? NO . CHILLS NO . FEVER NO . INFECTION: DO YOU HAVE NEW INFECTIONS? NO . DO YOU HAVE HISTORY OF MRSA? NO . MUSCULOSKELETAL: ANY NEW PATTERNS OF PAIN OR NUMBNESS? NO . SYTEMIC LUPUS NO . GASTROENTEROLOGY: ANY NEW CHANGE IN BOWEL CONTROL? NO . BARRETTS ESOPHAGUS NO . CIRRHOSIS NO . HEPATITIS FATTY LIVER . LIVER FAILURE NO . ACID REFLUX YES HIATAL HERNIA . UNEXPLAINED WEIGHT LOSS NO . GENITOURINARY: ANY NEW CHANGE IN BLADDER CONTROL? NO . IS THERE A CHANCE YOU COULD BE ? NO . HEMATOLOGY/LYMPH: DO YOU TAKE ANY BLOOD THINNERS? (FOR EXAMPLE- COUMADIN, PLAVIX, AGGRENOX, PLATEL, PRADAXA, OR XARELTO) NO . WHEN WAS YOUR LAST DOSE? DATE: TIME: . LOW PLATELET COUNT NO . SICKLE CELL DISEASE NO . VON WILLIEBRANDS NO . FACTOR V LEIDEN NO . THALLASEMIA NO . ANEMIA NO . EASY BRUISING NO . NEUROLOGY: HAVE YOU FALLEN IN THE PAST 12 MONTHS? NO . ANY NEW EXTREMITY NUMBNESS OR WEAKNESS? 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 . HEAD INJURY NO . DEMENTIA NO . CEREBRAL PALSY NO . MULTIPLE SCLEROSIS NO . DIZZINESS NO . HEADACHE NO . STROKES NO . VERTIGO NO . CARDIOLOGY: DO YOU HAVE A PACEMAKER OR DEFIBRILLATOR? NO . ANGINA NO . HEART ATTACK NO . HEART SURGERY NO . CONGESTIVE HEART FAILURE/FLUID OVERLOAD NO . CHEST PAIN NO . HIGH BLOOD PRESSURE ON MEDICATION(S) . IRREGULAR HEART BEAT NO . RESPIRATORY: HAVE YOU BEEN SICK IN THE PAST WEEK? NO . FEVER NO . FLU LIKE SYMPTOMS? NO . CPAP NO . BYPAP NO . ASTHMA NO . EMPHYSEMA NO . CHRONIC LUNG DISEASES NO . SHORTNESS OF BREATH ON EXERTION NO . COUGH NO . SNORING YES PT WITH HISTORY OF SLEEP APNEA, UNABLE TO TOLERATE CPAP . INTEGUMENTARY: DO YOU HAVE ANY RASHES OR OPEN SORES? NO . ALLERGIC/IMMUNO: ARE YOU ALLERGIC TO IV DYE? NO . ANY NEW ALLERGIES? NO . PSYCHIATRIC: DO YOU HAVE THOUGHTS OF HURTING YOURSELF OR SOMEONE ELSE? NO . ARE YOU ABUSED, NEGLECTED, OR IN AN UNSAFE ENVIRONMENT? NO . ENDOCRINOLOGY: ARE YOU DIABETIC? NO . THYROID DISORDER NO . OTHER: DO YOU NEED ANY PRESCRIPTIONS? NO . IF YES, PLEASE LIST: ____ . ANY NEW PROBLEMS WITH YOUR MEDICATIONS? NO . WHEN DID YOU LAST EAT? ____ . WHEN DID YOU LAST DRINK? ____ . WHAT DID YOU LAST DRINK? ____ . NAME OF PERSON DRIVING YOU HOME? ____ . DO YOU HAVE ANY OTHER QUESTIONS OR CONCERNS NO . VITAL SIGNS WT 140.0 LBS, HT 5'6", BMI 22.59 INDEX, BP 159/90 MM HG, HR 91 /MIN, RR 18 /MIN, TEMP 97.6 F, OXYGEN SAT % 99%, SAFE IN ENV? (Y/N) YES, NA INITIALS AW 1133, REVIEWED BY: ARNAUD. EXAMINATION GENERAL EXAMINATION: GENERAL AWAKE,ALERT ,PLEASANT . PSYCH AFFECT NORMAL . NECK: TRACHEA MIDLINE. NO CERVICAL OR SUPRACLAVICULAR LYMPHADENOPATHY NOTED. LUNGS: LUNG SYLVESTER ARE CLEAR TO AUSCULTATION BILATERALLY. GOOD MOVEMENT OF AIR . HEART: S1, S2 IN A REGULAR RATE AND RHYTHM. NO SIGNIFICANT MURMURS, RUBS OR GALLOPS NOTED . ABDOMEN: SOFT/NONTENDER. MUSCULOSKELETAL: MUSCLE STRENGTH TESTING 5/5 BILATERAL UPPER/LOWER EXTREMITIES. LUMBAR SACRAL SPINE PALPATION: + FOR PAIN OVER L/S SPINE. NEGATIVE FOR PAIN OVER L/S PARASPINALS. . CERVICAL NEGATIVE FOR PAIN WITH PALPATION OF CERVICAL SPINE. NEGATIVE FOR PAIN WITH PALPATION OF CERVICAL PARASPINALS. NEGATIVE FOR PAIN WITH PALPATION OF TRAPEZIUS BILAT. SKIN: NO RASH OR SKIN LESIONS. NEUROLOGIC EXAM: CN'S NORMAL TESTED , DTRS 1-2+ IN ALL 4 EXTREMITIES. MULTIPLE AREAS OF TENDER SPOTS UPPER/LOWER TORSO INDICATIVE OF FIBROMYALGIA. ASSESSMENTS FIBROMYALGIA - M79.7 (PRIMARY) TREATMENT FIBROMYALGIA START CYMBALTA CAPSULE DELAYED RELEASE PARTICLES, 20 MG, 1 CAPSULE, ORALLY, DAILY, 30 DAY(S), 30 CAPSULE, REFILLS 1 PROCEDURE CODES FA211 ESTABILISHED PATIENT [facility] CHARGE DISPOSITION & COMMUNICATION FOLLOW UP 6 WEEKS (REASON: MED MGMNT) ELECTRONICALLY SIGNED BY MATHEUS PETE ON 03/06/2019 AT 04:20 PM EST DISCLAIMER : THIS IS A VISIT SUMMARY EXTRACTED FROM THE [facility] CHART. IT IS NOT A COPY OF THE [employer] PROGRESS NOTE. ANA
== END ==
LOC: M PAIN 11:00
PROVIDERS: ATTEND Nurse Practitioner Family
DX: M79.7 Fibromyalgia (principal)

== ENCOUNTER → 2020-01-23 | Outpatient (CLI) | payer MEDICARE, OTHER ==
[2020-01-23 13:46] LABS: ALBUMIN 4.1 GM/DL (3.2-5.2); ALT/SGPT 28 U/L (12-78); BILIRUBIN,DIRECT 0.2 MG/DL (0.0-0.2); BILIRUBIN,TOTAL 0.4 MG/DL (0.2-1.0); BLOOD UREA NITROGEN 14 MG/DL (7-18); CALCIUM LEVEL 9.8 MG/DL (8.8-10.2); CARBON DIOXIDE LEVEL 30 MEQ/L (21-32); CHLORIDE LEVEL 104 MEQ/L (98-107); CREATININE FOR GFR 0.87 MG/DL (0.55-1.30); GLOMERULAR FILTRATION RATE > 60.0 (>39); GLUCOSE, FASTING 99 MG/DL (70-100); PHOSPHORUS LEVEL 4.3 MG/DL (2.5-4.9); POTASSIUM SERUM 5.2 MEQ/L (3.5-5.1); SODIUM LEVEL 138 MEQ/L (136-145); TOTAL PROTEIN 7.6 GM/DL (6.4-8.2)
== END ==
LOC: M WUC 10:53
PROVIDERS: ATTEND Physician Assistant
DX: S32.2XXA Fracture of coccyx, initial encounter for closed fracture (principal); X58.XXXA Exposure to other specified factors, initial encounter; Y92.89 Other specified places as the place of occurrence of the external cause; Y93.9 Activity, unspecified; Y99.9 Unspecified external cause status

== ENCOUNTER → 2020-08-13 | Outpatient (REF) | payer MEDICARE ==
[2020-08-13 16:44] LABS: BASO % 0.2 % (0.0-1.0); EOS # 0.1 10^3/uL (0.0-0.5); EOS % 1.4 % (0.0-3.0); HEMATOCRIT 43.2 % (36.0-47.0); HEMOGLOBIN 14.1 g/dl (12.0-15.5); LYMPH # 1.5 10^3/uL (1.5-5.0); LYMPH % 30.2 % (24.0-44.0); MEAN CORPUSCULAR HEMOGLOBIN 31.8 pg (27.0-33.0); MEAN CORPUSCULAR HGB CONC 32.6 g/dl (32.0-36.5); MEAN CORPUSCULAR VOLUME 97.5 fl (80.0-96.0); MONO # 0.6 10^3/uL (0.0-0.8); MONO % 11.2 % (2.0-8.0); NEUTROPHILS # 2.8 10^3/uL (1.5-8.5); NEUTROPHILS % 56.8 % (36.0-66.0); PLATELET COUNT, AUTOMATED 296 10^3/uL (150-450); RED BLOOD COUNT 4.43 10^6/uL (4.00-5.40); WHITE BLOOD COUNT 4.9 10^3/uL (4.0-10.0)
[2020-08-13 17:26] LABS: FREE T4 0.8 NG/DL (0.76-1.46); THYROID STIMULATING HORMONE 2.32 uIU/ML (0.358-3.740)
== END ==
LOC: M SFHCADAM 11:49
PROVIDERS: ATTEND Family Medicine
DX: Z00.00 Encounter for general adult medical examination without abnormal findings (principal); E07.9 Disorder of thyroid, unspecified

== ENCOUNTER → 2020-09-05 | Outpatient (REF) | payer MEDICARE ==
[2020-09-05 12:37] LABS: BASO % 0.2 % (0.0-1.0); EOS # 0.1 10^3/uL (0.0-0.5); EOS % 1.2 % (0.0-3.0); HEMATOCRIT 41.9 % (36.0-47.0); HEMOGLOBIN 13.6 g/dl (12.0-15.5); LYMPH % 20.8 % (24.0-44.0); MEAN CORPUSCULAR HGB CONC 32.5 g/dl (32.0-36.5); MEAN CORPUSCULAR VOLUME 98.6 fl (80.0-96.0); MONO # 0.5 10^3/uL (0.0-0.8); MONO % 9.8 % (2.0-8.0); NEUTROPHILS # 3.3 10^3/uL (1.5-8.5); NEUTROPHILS % 67.8 % (36.0-66.0); PLATELET COUNT, AUTOMATED 285 10^3/uL (150-450); RED BLOOD COUNT 4.25 10^6/uL (4.00-5.40); WHITE BLOOD COUNT 4.9 10^3/uL (4.0-10.0)
[2020-09-05 13:25] LABS: ALBUMIN 4.2 GM/DL (3.2-5.2); ALT/SGPT 23 U/L (12-78); BILIRUBIN,TOTAL 0.4 MG/DL (0.2-1.0); BLOOD UREA NITROGEN 12 MG/DL (7-18); CARBON DIOXIDE LEVEL 28 MEQ/L (21-32); CHLORIDE LEVEL 103 MEQ/L (98-107); CREATININE FOR GFR 0.77 MG/DL (0.55-1.30); GLOMERULAR FILTRATION RATE > 60.0 (>39); GLUCOSE, FASTING 99 MG/DL (70-100); NT-PRO BNP 116 PG/ML (<450); SODIUM LEVEL 138 MEQ/L (136-145); TOTAL PROTEIN 7.4 GM/DL (6.4-8.2)
== END ==
LOC: M SFHCADAM 10:12
PROVIDERS: ATTEND Family Medicine
DX: R06.00 Dyspnea, unspecified (principal); K57.92 Diverticulitis of intestine, part unspecified, without perforation or abscess without bleeding

== ENCOUNTER → 2020-09-09 | Outpatient (CLI) | payer MEDICARE ==
[~2020-09-09] MED LIST changes: +GASTROGRAFIN SOLUTION 30ML (Q9963) As Ordered ONE; +ISOVUE-370 76% 100ML VIAL As Ordered ONE
--- NOTE | 2020-09-09 13:25 | REP ---
INDICATION: DIVERTICULITIS. COMPARISON: 06/16/2018 TECHNIQUE: Axial contrast-enhanced images from the lung bases to the pubic symphysis using 100 cc Isovue 370 intravenous contrast material. Coronal and sagittal reformations obtained. This CT examination was performed using the following dose reduction techniques: Automated exposure control, adjustment of mA and/or kv according to the patient's size, and the use of iterative reconstruction technique. FINDINGS: Liver, spleen, pancreas, gallbladder, bilateral adrenal glands and kidneys are normal. Incidental small left renal cyst. The enteric system is without obstruction or acute inflammatory process. Sigmoid diverticulosis noted without acute diverticulitis. Pelvis demonstrates normal bladder and evidence for prior hysterectomy No ascites. No free air. No intraperitoneal or retroperitoneal adenopathy. Abdominal aorta and vasculature appear normal. Musculoskeletal structures are intact and without acute osseous abnormality. IMPRESSION: No acute abdominopelvic pathology appreciated. Diverticulosis without acute diverticulitis. <Electronically signed by Milo Tellez > 09/09/20 [id number]
== END ==
LOC: M RAD 11:25
PROVIDERS: ATTEND Family Medicine
DX: K57.30 Diverticulosis of large intestine without perforation or abscess without bleeding (principal)
CPT/HCPCS: 74177; Q9963; Q9967

== ENCOUNTER → 2020-09-09 | Outpatient (REF) | payer MEDICARE ==
[~2020-09-09] MED LIST changes: -GASTROGRAFIN SOLUTION 30ML (Q9963) As Ordered ONE; -ISOVUE-370 76% 100ML VIAL As Ordered ONE
== END ==
LOC: M SFHCADAM 12:38
PROVIDERS: ATTEND Family Medicine
DX: K57.92 Diverticulitis of intestine, part unspecified, without perforation or abscess without bleeding (principal)

== ENCOUNTER → 2020-10-10 | Outpatient (CLI) | payer MEDICARE ==
--- NOTE | 2020-10-10 10:01 | REP ---
INDICATION: RIGHT UPPER QUAD PAIN COMPARISON: None. TECHNIQUE: Real time gomez scale ultrasound examination using curved array transducer. FINDINGS: Liver is normal in contour, size, and echogenicity without focal hepatic lesions identified. Pancreas is incompletely evaluated due to interposed bowel gas. The gallbladder is normal and without gallstones, wall thickening, or pericholecystic fluid. No biliary ductal dilatation is appreciated and the common bile duct measures 5.4 mm diameter. Right kidney is normal in reniform shape without hydronephrosis and measures 9.9 x 5.1 x 4.9 cm. No ascites in the visualized right upper quadrant. IMPRESSION: Normal limited right upper quadrant ultrasound <Electronically signed by Milo Tellez > 10/10/20 0903
== END ==
LOC: M RAD 09:14
PROVIDERS: ATTEND Family Medicine
DX: R10.11 Right upper quadrant pain (principal)

== ENCOUNTER → 2021-03-25 | Outpatient (CLI) | payer MEDICARE ==
--- NOTE | 2021-03-25 11:31 | REP ---
INDICATION: DYSPNEA COMPARISON: 03/06/2018 TECHNIQUE: PA and lateral. FINDINGS: The mediastinum and cardiac silhouette are normal. The lung vazquez are clear and without acute consolidation, effusion, or pneumothorax. The skeletal structures are intact and normal. IMPRESSION: No acute cardiopulmonary process. <Electronically signed by Milo Tellez > 03/25/21 1122
== END ==
LOC: M WUC 11:05
PROVIDERS: ATTEND Internal Medicine Cardiovascular Disease
DX: R06.00 Dyspnea, unspecified (principal)

== ENCOUNTER → 2021-08-27 | Outpatient (REF) | payer MEDICARE ==
[2021-08-27 16:37] LABS: HEMATOCRIT 40.3 % (36.0-47.0); HEMOGLOBIN 13.2 g/dl (12.0-15.5); MEAN CORPUSCULAR HEMOGLOBIN 31.9 pg (27.0-33.0); MEAN CORPUSCULAR HGB CONC 32.8 g/dl (32.0-36.5); MEAN CORPUSCULAR VOLUME 97.3 fl (80.0-96.0); PLATELET COUNT, AUTOMATED 299 10^3/uL (150-450); RED BLOOD COUNT 4.14 10^6/uL (4.00-5.40)
[2021-08-27 17:15] LABS: ALBUMIN 3.7 GM/DL (3.2-5.2); ALT/SGPT 17 U/L (12-78); BILIRUBIN,TOTAL 0.4 MG/DL (0.2-1.0); BLOOD UREA NITROGEN 11 MG/DL (7-18); CALCIUM LEVEL 9.7 MG/DL (8.8-10.2); CARBON DIOXIDE LEVEL 28 MEQ/L (21-32); CHLORIDE LEVEL 107 MEQ/L (98-107); CHOLESTEROL LEVEL 264 MG/DL (<200); CHOLESTEROL RISK RATIO 2.666 (<5); CREATININE FOR GFR 0.77 MG/DL (0.55-1.30); FREE T4 0.73 NG/DL (0.76-1.46); GLOMERULAR FILTRATION RATE > 60.0 (>39); GLUCOSE, FASTING 88 MG/DL (70-100); HDL CHOLESTEROL 99 MG/DL (>40); LDL CHOLESTEROL 141 MG/DL (<100); NON-HDL-C 165 MG/DL; POTASSIUM SERUM 4.4 MEQ/L (3.5-5.1); SODIUM LEVEL 141 MEQ/L (136-145); TOTAL PROTEIN 7.1 GM/DL (6.4-8.2); TRIGLYCERIDES LEVEL 121 MG/DL (<150)
[2021-08-27 17:20] LABS: TOTAL 25(OH) VITAMIN D 67.4 NG/ML (30.0-100.0); VITAMIN B12 LEVEL 391 PG/ML (247-911)
[2021-08-28 18:29] LABS: FOLATE 10.4 NG/ML (>5.4)
== END ==
LOC: M SFHCADAM 11:46
PROVIDERS: ATTEND Family Medicine
DX: I11.9 Hypertensive heart disease without heart failure (principal); K58.0 Irritable bowel syndrome with diarrhea; F32.9 Major depressive disorder, single episode, unspecified; E78.5 Hyperlipidemia, unspecified; E03.9 Hypothyroidism, unspecified; E55.9 Vitamin D deficiency, unspecified

== ENCOUNTER → 2021-11-25 | Outpatient (CLI) | payer MEDICARE ==
[~2021-11-25] MED LIST changes: +AMLO1TAB24 PO; +EXCETAB44 PO; +LOSA100T45 PO; +NEUR600T PO; +RABE1TAB4 PO; +VITA-298 PO
== END ==
LOC: M LABSMTC 09:45
PROVIDERS: ATTEND Anesthesiology
DX: Z11.52 Encounter for screening for COVID-19 (principal)

== ENCOUNTER 2021-11-30 12:10 | Day surgery (SDC) | payer MEDICARE ==
[~2021-11-30] VITALS: Ht 170.2 cm; Wt 63.2 kg
[~2021-11-30 12:10] MED LIST changes: +LIDOCAINE 1% SDV 5ML VIAL As Ordered ONE; +LR 1,000 ML IV SCH; +MIDAZOLAM INJ 2MG/2ML VIAL (J2250 PER 1MG) As Ordered ONE
[2021-11-30] MEDS: TETRACAINE 0.5% OPHTH SOLN 4ML OD SCH ×2 (12:45→13:37)
[2021-11-30] MEDS: CYCLOPENTOLATE 1% OPHTH SOLN 2 ML BTL OD SCH ×3 (12:46→13:07)
[2021-11-30] MEDS: PHENYLEPHRINE 2.5% OPHTH SOL 2ML OD SCH ×3 (12:46→13:07)
[2021-11-30] MEDS: FLURBIPROFEN 0.03% OPHTH SOLN 2.5 ML OD SCH ×3 (12:46→13:07)
[2021-11-30 15:10] VITALS: BP 111/64
== END 2021-11-30 15:16 | disposition home or self-care (01) ==
LOC: M SDC 12:10
PROVIDERS: ATTEND Ophthalmology
DX: H25.11 Age-related nuclear cataract, right eye (principal); I10 Essential (primary) hypertension; K58.8 Other irritable bowel syndrome; M79.7 Fibromyalgia; R21 Rash and other nonspecific skin eruption; G47.30 Sleep apnea, unspecified; F41.9 Anxiety disorder, unspecified; Z88.1 Allergy status to other antibiotic agents; Z88.8 Allergy status to other drugs, medicaments and biological substances; Z87.891 Personal history of nicotine dependence; Z79.899 Other long term (current) drug therapy
CPT/HCPCS: 66984; J2250; V2788

== ENCOUNTER → 2021-12-30 | Outpatient (CLI) | payer MEDICARE ==
[~2021-12-30] MED LIST changes: -LIDOCAINE 1% SDV 5ML VIAL As Ordered ONE; -LR 1,000 ML IV SCH; -MIDAZOLAM INJ 2MG/2ML VIAL (J2250 PER 1MG) As Ordered ONE
== END ==
LOC: M LABSMTC 10:44
PROVIDERS: ATTEND Anesthesiology
DX: Z01.812 Encounter for preprocedural laboratory examination (principal); Z11.52 Encounter for screening for COVID-19

== ENCOUNTER 2022-01-04 09:05 | Day surgery (SDC) | payer MEDICARE ==
[~2022-01-04] VITALS: Ht 167.6 cm; Wt 63.0 kg
[~2022-01-04 09:05] MED LIST changes: +LIDOCAINE 1% SDV 5ML VIAL As Ordered ONE; +LR 1,000 ML IV SCH
[2022-01-04] MEDS ORDERED: TETRACAINE 0.5% OPHTH SOLN 4ML OS SCH (11:30)
[2022-01-04] MEDS ORDERED: CYCLOPENTOLATE 1% OPHTH SOLN 2 ML BTL OS SCH (11:30)
[2022-01-04] MEDS ORDERED: FLURBIPROFEN 0.03% OPHTH SOLN 2.5 ML OS SCH (11:30)
[2022-01-04] MEDS ORDERED: PHENYLEPHRINE 2.5% OPHTH SOL 2ML OS SCH (11:30)
[2022-01-04] MEDS ORDERED: MIDAZOLAM INJ 2MG/2ML VIAL (J2250 PER 1MG) As Ordered ONE (11:33)
[2022-01-04] MEDS ORDERED: fentaNYL 100 MCG/2 ML INJECTION As Ordered ONE (11:34)
[2022-01-04] MEDS ORDERED: LIDOCAINE 1% SDV 5ML VIAL As Ordered ONE (12:42)
[2022-01-04 14:30] VITALS: BP 146/79
== END 2022-01-04 14:35 | disposition home or self-care (01) ==
LOC: M SDC 09:05
PROVIDERS: ATTEND Ophthalmology
DX: H25.12 Age-related nuclear cataract, left eye (principal); Z91.040 Latex allergy status; Z88.1 Allergy status to other antibiotic agents; Z88.8 Allergy status to other drugs, medicaments and biological substances
CPT/HCPCS: 66984; J2250; J3010; V2788

== ENCOUNTER → 2022-02-11 | Outpatient (REF) | payer MEDICARE ==
[~2022-02-11] MED LIST changes: -LIDOCAINE 1% SDV 5ML VIAL As Ordered ONE; -LR 1,000 ML IV SCH; +VITA-148 PO; -VITA-298 PO
[2022-02-11 17:06] LABS: HEMATOCRIT 41.1 % (36.0-47.0); HEMOGLOBIN 13.2 g/dl (12.0-15.5); MEAN CORPUSCULAR HEMOGLOBIN 32.1 pg (27.0-33.0); MEAN CORPUSCULAR HGB CONC 32.1 g/dl (32.0-36.5); PLATELET COUNT, AUTOMATED 304 10^3/uL (150-450); RED BLOOD COUNT 4.11 10^6/uL (4.00-5.40); WHITE BLOOD COUNT 5.7 10^3/uL (4.0-10.0)
[2022-02-11 17:19] LABS: INR 0.81; PROTHROMBIN TIME 11.4 SECONDS (12.5-14.5)
[2022-02-11 17:20] LABS: PARTIAL THROMBOPLASTIN TIME 24.7 SECONDS (24.8-34.2)
[2022-02-11 17:49] LABS: ALT/SGPT 20 U/L (12-78); BILIRUBIN,TOTAL 0.4 MG/DL (0.2-1.0); BLOOD UREA NITROGEN 10 MG/DL (7-18); CALCIUM LEVEL 9.9 MG/DL (8.8-10.2); CARBON DIOXIDE LEVEL 29 MEQ/L (21-32); CHLORIDE LEVEL 103 MEQ/L (98-107); CREATININE FOR GFR 0.94 MG/DL (0.55-1.30); GLOMERULAR FILTRATION RATE > 60.0 (>39); GLUCOSE, FASTING 140 MG/DL (70-100); POTASSIUM SERUM 4.3 MEQ/L (3.5-5.1); SODIUM LEVEL 137 MEQ/L (136-145); TOTAL PROTEIN 7.5 GM/DL (6.4-8.2)
== END ==
LOC: M SFHCADAM 13:21
PROVIDERS: ATTEND Family Medicine
DX: K62.5 Hemorrhage of anus and rectum (principal)

== ENCOUNTER → 2022-06-11 | Outpatient (REF) | payer MEDICARE ==
[2022-06-11 20:00] LABS: THYROID STIMULATING HORMONE 2.605 uIU/ML (0.55-4.78)
[2022-06-11 20:01] LABS: ALBUMIN 4.1 G/DL (3.2-5.2); ALKALINE PHOSPHATASE 85 U/L (46-116); ALT/SGPT 17 U/L (7.0-40); AST/SGOT 18 U/L (<34); BILIRUBIN,TOTAL 0.6 MG/DL (0.3-1.2); BLOOD UREA NITROGEN 12 MG/DL (9-23); CALCIUM LEVEL 9.7 MG/DL (8.3-10.6); CARBON DIOXIDE LEVEL 29 MMOL/L (20-31); CHLORIDE LEVEL 103 MMOL/L (98-107); CREATININE FOR GFR 0.77 MG/DL (0.55-1.30); GLOMERULAR FILTRATION RATE > 60.0 (>39); GLUCOSE, FASTING 91 MG/DL (74-106); POTASSIUM SERUM 4.6 MMOL/L (3.5-5.1); SODIUM LEVEL 139 MMOL/L (136-145); TOTAL PROTEIN 7.3 G/DL (5.7-8.2)
[2022-06-11 20:03] LABS: FREE T4 0.99 NG/DL (0.89-1.76)
[2022-06-11 20:19] LABS: HEMATOCRIT 41.7 % (36.0-47.0); HEMOGLOBIN 13.6 g/dl (12.0-15.5); MEAN CORPUSCULAR HGB CONC 32.6 g/dl (32.0-36.5); MEAN CORPUSCULAR VOLUME 98.1 fl (80.0-96.0); PLATELET COUNT, AUTOMATED 328 10^3/uL (150-450); RED BLOOD COUNT 4.25 10^6/uL (4.00-5.40); WHITE BLOOD COUNT 5.9 10^3/uL (4.0-10.0)
== END ==
LOC: M SFHCADAM 09:36
PROVIDERS: ATTEND Family Medicine
DX: R06.09 Other forms of dyspnea (principal); I11.9 Hypertensive heart disease without heart failure; E03.9 Hypothyroidism, unspecified

== ENCOUNTER → 2022-06-11 | Outpatient (CLI) | payer MEDICARE | LOC: M ADAMS 10:03 | PROVIDERS: ATTEND Family Medicine | DX: J43.9 Emphysema, unspecified (principal); R91.8 Other nonspecific abnormal finding of lung field; M51.34 Other intervertebral disc degeneration, thoracic region; I11.9 Hypertensive heart disease without heart failure ==

== ENCOUNTER → 2022-12-15 | Outpatient (REF) | payer MEDICARE ==
[~2022-12-15] MED LIST changes: -LOSA100T45 PO; +LOSA100T46 PO
[2022-12-15 17:14] LABS: HEMATOCRIT 39.3 % (36.0-47.0); HEMOGLOBIN 12.9 g/dl (12.0-15.5); MEAN CORPUSCULAR HEMOGLOBIN 32.2 pg (27.0-33.0); MEAN CORPUSCULAR HGB CONC 32.8 g/dl (32.0-36.5); PLATELET COUNT, AUTOMATED 328 10^3/uL (150-450); RED BLOOD COUNT 4.01 10^6/uL (4.00-5.40); WHITE BLOOD COUNT 4.8 10^3/uL (4.0-10.0)
[2022-12-15 17:16] LABS: ALBUMIN 3.9 G/DL (3.2-5.2); BILIRUBIN,TOTAL 0.6 MG/DL (0.3-1.2); CREATININE FOR GFR 0.96 MG/DL (0.55-1.30); GLOMERULAR FILTRATION RATE 59.5 (>32); POTASSIUM SERUM 4.6 MMOL/L (3.5-5.1)
== END ==
LOC: M SFHCADAM 12:15
PROVIDERS: ATTEND Family Medicine
DX: K62.5 Hemorrhage of anus and rectum (principal); R19.4 Change in bowel habit; R14.0 Abdominal distension (gaseous)

== ENCOUNTER → 2022-12-23 | Outpatient (CLI) | payer MEDICARE | LOC: M WHC 09:42 | PROVIDERS: ATTEND Family Medicine | DX: R14.0 Abdominal distension (gaseous) (principal) ==

== ENCOUNTER → 2023-09-01 | Outpatient (REF) | payer MEDICARE ==
[2023-09-01 15:29] LABS: HEMATOCRIT 39.5 % (36.0-47.0); HEMOGLOBIN 13.3 g/dl (12.0-15.5); MEAN CORPUSCULAR HEMOGLOBIN 32.2 pg (27.0-33.0); MEAN CORPUSCULAR HGB CONC 33.7 g/dl (32.0-36.5); MEAN CORPUSCULAR VOLUME 95.6 fl (80.0-96.0); PLATELET COUNT, AUTOMATED 295 10^3/uL (150-450); RED BLOOD COUNT 4.13 10^6/uL (4.00-5.40); WHITE BLOOD COUNT 5.5 10^3/uL (4.0-10.0)
[2023-09-01 15:37] LABS: ALBUMIN 3.8 G/DL (3.2-5.2); ALKALINE PHOSPHATASE 78 U/L (46-116); ALT/SGPT 20 U/L (7.0-40); AST/SGOT 12 U/L (<34); BILIRUBIN,TOTAL 0.6 MG/DL (0.3-1.2); BLOOD UREA NITROGEN 12 MG/DL (9-23); CALCIUM LEVEL 9.6 MG/DL (8.3-10.6); CARBON DIOXIDE LEVEL 27 MMOL/L (20-31); CHLORIDE LEVEL 103 MMOL/L (98-107); CHOLESTEROL LEVEL 256 MG/DL (<200); CREATININE FOR GFR 0.71 MG/DL (0.55-1.30); GLOMERULAR FILTRATION RATE > 60.0 (>32); GLUCOSE, FASTING 106 MG/DL (74-106); HDL CHOLESTEROL 121.7 MG/DL (>40); LDL CHOLESTEROL 126.3 MG/DL (<100); NON-HDL-C 134.3 MG/DL; POTASSIUM SERUM 4.2 MMOL/L (3.5-5.1); SODIUM LEVEL 136 MMOL/L (136-145); TRIGLYCERIDES LEVEL 40 MG/DL (<150)
[2023-09-01 15:38] LABS: FREE T4 0.95 NG/DL (0.89-1.76); THYROID STIMULATING HORMONE 2.284 uIU/ML (0.55-4.78)
== END ==
LOC: M SFHCADAM 11:58
PROVIDERS: ATTEND Family Medicine
DX: Z13.1 Encounter for screening for diabetes mellitus (principal); E78.5 Hyperlipidemia, unspecified; K58.0 Irritable bowel syndrome with diarrhea; I11.9 Hypertensive heart disease without heart failure

== ENCOUNTER → 2024-04-25 | Outpatient (CLI) | payer MEDICARE ==
[~2024-04-25] MED LIST changes: +ACET-1599 PO; -EXCETAB44 PO
== END ==
LOC: M ADAMS 09:13
PROVIDERS: ATTEND Family Medicine
DX: M47.816 Spondylosis without myelopathy or radiculopathy, lumbar region (principal); M16.12 Unilateral primary osteoarthritis, left hip

== ENCOUNTER 2024-07-19 09:11 | Observation (INO) | payer MEDICARE ==
[~2024-07-19] VITALS: Ht 165.1 cm; Wt 67.6 kg
[2024-07-19] MEDS ORDERED: TRAM50TA2 PO (09:41)
[2024-07-19] MEDS ORDERED: LOPE-39 PO (09:41)
[2024-07-19] MEDS: diazePAM 10MG/2ML SYRINGE IV ONE ×2 (10:05→11:02)
[2024-07-19] MEDS: KETOROLAC 30 MG/ML 1ML VIAL IV ONE (10:05)
[2024-07-19] MEDS: PERCOCET 5MG/325MG TAB PO ONE (13:46)
[2024-07-19] MEDS ORDERED: HOME MED LIST COMPLETE! XX SCH (16:25)
[2024-07-19] MEDS ORDERED: GABAPENTIN 300 MG CAP PO PRN (16:35)
[2024-07-19 16:37] LABS: BASO % 0.1 % (0.0-1.0); EOS % 0.1 % (0.0-3.0); HEMATOCRIT 39.3 % (36.0-47.0); HEMOGLOBIN 13.2 g/dl (12.0-15.5); LYMPH # 1.3 10^3/uL (1.5-5.0); LYMPH % 18.8 % (24.0-44.0); MEAN CORPUSCULAR HEMOGLOBIN 31.7 pg (27.0-33.0); MEAN CORPUSCULAR HGB CONC 33.6 g/dl (32.0-36.5); MEAN CORPUSCULAR VOLUME 94.2 fl (80.0-96.0); MONO # 0.7 10^3/uL (0.0-0.8); MONO % 10.2 % (2.0-8.0); NEUTROPHILS # 4.8 10^3/uL (1.5-8.5); NEUTROPHILS % 70.5 % (36.0-66.0); PLATELET COUNT, AUTOMATED 308 10^3/uL (150-450); RED BLOOD COUNT 4.17 10^6/uL (4.00-5.40); WHITE BLOOD COUNT 6.8 10^3/uL (4.0-10.0)
[2024-07-19 16:47] LABS: ALBUMIN 3.7 G/DL (3.2-5.2); BILIRUBIN,TOTAL 0.6 MG/DL (0.3-1.2); CALCIUM LEVEL 9.5 MG/DL (8.3-10.6); CREATININE FOR GFR 0.72 MG/DL (0.55-1.30); POTASSIUM SERUM 3.9 MMOL/L (3.5-5.1)
[2024-07-19] MEDS: GABAPENTIN 300 MG CAP PO SCH (20:15)
[2024-07-19] MEDS: CYCLOBENZAPRINE 5MG TABLET PO SCH (20:15)
[2024-07-19] MEDS: ACETAMINOPHEN 500 MG TAB PO SCH (20:15)
[2024-07-19] MEDS: traMADol 50 MG TAB PO PRN (20:16)
[2024-07-19] MEDS: PANTOPRAZOLE 40MG TAB (PROTONIX) PO SCH (20:16)
[2024-07-19] MEDS: DULoxetine 30MG CAPSULE (CYMBALTA) PO SCH (21:00)
[2024-07-19 22:00] VITALS: BP 126/85; TEMP 97.3; O2SAT 95
[2024-07-20 04:42] VITALS: BP 132/84; TEMP 97.3; O2SAT 96
[2024-07-20 06:26] LABS: HEMATOCRIT 37.4 % (36.0-47.0); HEMOGLOBIN 12.3 g/dl (12.0-15.5); MEAN CORPUSCULAR HEMOGLOBIN 31.9 pg (27.0-33.0); MEAN CORPUSCULAR HGB CONC 32.9 g/dl (32.0-36.5); MEAN CORPUSCULAR VOLUME 97.1 fl (80.0-96.0); PLATELET COUNT, AUTOMATED 262 10^3/uL (150-450); RED BLOOD COUNT 3.85 10^6/uL (4.00-5.40); WHITE BLOOD COUNT 4.2 10^3/uL (4.0-10.0)
[2024-07-20 06:45] LABS: CALCIUM LEVEL 8.8 MG/DL (8.3-10.6); CREATININE FOR GFR 0.68 MG/DL (0.55-1.30); GLOMERULAR FILTRATION RATE 87.4 (>32); MAGNESIUM LEVEL 1.8 MG/DL (1.8-2.4); POTASSIUM SERUM 4.6 MMOL/L (3.5-5.1)
[2024-07-20] MEDS: ENOXAPARIN 40MG/0.4ML SYRINGE (J1650 PER 10MG) SC SCH (08:19)
[2024-07-20] MEDS: LOSARTAN 50MG TABLET PO SCH (08:20)
[2024-07-20] MEDS: amLODIPine 5 MG TAB PO SCH (08:20)
[2024-07-20 12:00] VITALS: BP 129/89; TEMP 97.3; O2SAT 96
[2024-07-20 23:04] VITALS: O2SAT 82
[2024-07-20 23:08] VITALS: O2SAT 92
[2024-07-20 23:10] VITALS: O2SAT 95
[2024-07-20 23:11] VITALS: O2SAT 95
[2024-07-21 04:34] VITALS: BP 124/89; TEMP 97.3; O2SAT 94
[2024-07-21] MEDS: CYCLOBENZAPRINE 5MG TABLET PO PRN (20:27)
[2024-07-22 04:34] VITALS: BP 136/94; TEMP 97; O2SAT 94
[2024-07-22] MEDS: LOPERAMIDE 2 MG CAPLET PO ONE (21:13)
[2024-07-23 04:00] VITALS: BP 130/89; TEMP 97.1; O2SAT 98
[2024-07-24 03:30] VITALS: BP 145/85; TEMP 97.5; O2SAT 97
[2024-07-25 04:00] VITALS: BP 140/76; TEMP 97.5; O2SAT 97
[2024-07-25] MEDS: GABAPENTIN 300 MG CAP PO PRN (20:34)
[2024-07-26 03:35] VITALS: BP 121/79; TEMP 97; O2SAT 97
[2024-07-26 05:37] LABS: RSV AMPLIFICATION NEGATIVE (NEGATIVE)
[2024-07-26] MEDS ORDERED: CYCL5TAB4 PO (11:58)
[2024-07-26] MEDS ORDERED: ACET-683 PO (11:58)
[2024-07-26] MEDS ORDERED: ASPI325T56 PO (12:29)
[2024-07-26] MEDS: LOPERAMIDE 2 MG CAPLET PO ONE (21:02)
[2024-07-27 03:31] VITALS: BP 137/65; TEMP 97.3; O2SAT 97
[2024-07-27 09:00] VITALS: BP 137/65
[2024-07-27] MEDS: LOPERAMIDE 2 MG CAPLET PO ONE (11:08)
== END 2024-07-27 11:27 | disposition home or self-care (01) ==
LOC: M ED 09:11 → EDBD 09:11 → M ED INP 09:12 → M MSPAV 22:00
PROVIDERS: ADMIT Internal Medicine; ATTEND Student in an Organized Health Care Education/Training Program
DX: S82.145A Nondisplaced bicondylar fracture of left tibia, initial encounter for closed fracture (principal); M25.462 Effusion, left knee; X58.XXXA Exposure to other specified factors, initial encounter; Y92.018 Other place in single-family (private) house as the place of occurrence of the external cause; Y93.9 Activity, unspecified; Y99.9 Unspecified external cause status; M25.551 Pain in right hip; M25.552 Pain in left hip; G89.29 Other chronic pain; M54.31 Sciatica, right side; M85.88 Other specified disorders of bone density and structure, other site; M19.90 Unspecified osteoarthritis, unspecified site; M62.838 Other muscle spasm; M79.7 Fibromyalgia; M51.379 Other intervertebral disc degeneration, lumbosacral region without mention of lumbar back pain or lower extremity pain; G90.50 Complex regional pain syndrome I, unspecified; Z91.81 History of falling; I10 Essential (primary) hypertension; E78.5 Hyperlipidemia, unspecified; K21.9 Gastro-esophageal reflux disease without esophagitis; F32.A Depression, unspecified; K52.9 Noninfective gastroenteritis and colitis, unspecified; Z87.81 Personal history of (healed) traumatic fracture; Z90.79 Acquired absence of other genital organ(s); Z90.89 Acquired absence of other organs; Z98.41 Cataract extraction status, right eye; Z98.42 Cataract extraction status, left eye; Z98.890 Other specified postprocedural states; Z91.040 Latex allergy status; Z88.1 Allergy status to other antibiotic agents; Z88.8 Allergy status to other drugs, medicaments and biological substances; Z79.899 Other long term (current) drug therapy; Z66 Do not resuscitate
CPT/HCPCS: 36415; 72110; 73502; 73564; 73630; 73700; 80048; 80053; 83735; 85025; 85027; 87631; 96372; 96374; 96375; 96376; 97110; 97116; 97161; 97165; 97530; 97535; 99284; G0378; J1650; J1885; J3360

== ENCOUNTER → 2024-08-13 | Outpatient (CLI) | payer MEDICARE ==
[~2024-08-13] MED LIST changes: +ACET-683 PO; +ASPI325T56 PO; +CYCL5TAB4 PO; +LOPE-39 PO; -RABE1TAB4 PO; +RABE1TAB5 PO; +TRAM50TA2 PO
== END ==
LOC: M SOG 07:49
PROVIDERS: ATTEND Physician Assistant
DX: M25.562 Pain in left knee (principal)

== ENCOUNTER → 2024-08-16 | Outpatient (CLI) | payer MEDICARE | LOC: M SOG 07:03 | PROVIDERS: ATTEND Physician Assistant | DX: M25.562 Pain in left knee (principal); M17.12 Unilateral primary osteoarthritis, left knee ==

== ENCOUNTER → 2024-10-25 | Outpatient (REF) | payer MEDICARE ==
[2024-10-25 17:59] LABS: ALT/SGPT 13.0 U/L (7.0-40); AST/SGOT 16.0 U/L (<34); CALCIUM LEVEL 9.7 MG/DL (8.3-10.6); CARBON DIOXIDE LEVEL 29.0 MMOL/L (20-31); CHLORIDE LEVEL 97.0 MMOL/L (98-107); CHOLESTEROL LEVEL 239.0 MG/DL (<200); CHOLESTEROL RISK RATIO 2.06 (<5); CREATININE FOR GFR 0.74 MG/DL (0.55-1.30); GLOMERULAR FILTRATION RATE 80.7 (>32); LDL CHOLESTEROL 106.3 MG/DL (<100); NON-HDL-C 123.3 MG/DL; PLATELET COUNT, AUTOMATED 338 10^3/uL (150-450); POTASSIUM SERUM 4.6 MMOL/L (3.5-5.1); SODIUM LEVEL 136.0 MMOL/L (136-145); TRIGLYCERIDES LEVEL 85.0 MG/DL (<150)
[2024-10-25 18:01] LABS: FREE T4 1.15 NG/DL (0.89-1.76)
[2024-10-25 18:53] LABS: ESTIMATED AVERAGE GLUCOSE 88.0 MG/DL (60-110)
== END ==
LOC: M SFHCADAM 14:12
PROVIDERS: ATTEND Family Medicine
DX: I73.00 Raynaud's syndrome without gangrene (principal); E03.9 Hypothyroidism, unspecified; Z13.1 Encounter for screening for diabetes mellitus; E78.5 Hyperlipidemia, unspecified

== ENCOUNTER → 2025-01-16 | Outpatient (REF) | payer MEDICARE ==
[2025-01-16 19:02] LABS: APPEARANCE, URINE CLOUDY (CLEAR); BACTERIA, URINE AUTO 2+ (NEGATIVE); BILIRUBIN, URINE AUTO NEGATIVE (NEGATIVE); BLOOD, URINE BLOOD NEGATIVE (NEGATIVE); GLUCOSE, URINE (UA) AUTO NEGATIVE (NEGATIVE); KETONE, URINE AUTO NEGATIVE (NEGATIVE); LEUKOCYTE ESTERASE, URINE AUTO 3+ (NEGATIVE); NITRITE, URINE AUTO NEGATIVE (NEGATIVE); PROTEIN, URINE AUTO 2+ mg/dL (NEGATIVE); RBC, URINE AUTO 13 /HPF (0-3); SPECIFIC GRAVITY URINE AUTO 1.016 (1.002-1.035); SQUAMOUS EPITHELIAL CELL UR AU 0 /HPF (0-6); TRANSITIONAL EPITHELIAL AUTO 2 /HPF; UROBILINOGEN, URINE AUTO 0.2 mg/dL (0.0-2.0); WBC, URINE AUTO TNTC /HPF (0-3)
== END ==
LOC: M SFHCADAM 17:31
PROVIDERS: ATTEND Family Medicine
DX: R39.9 Unspecified symptoms and signs involving the genitourinary system (principal)